=== PATIENT | male | born 1975 | race Caucasian/White ===

== ENCOUNTER 2017-03-31 13:34 | Inpatient (IN) | payer BC ==
[2017-03-31] MEDS ORDERED: Sodium Chloride 0.9% 1,000 ML IV ONE (13:39)
[2017-03-31] MEDS ORDERED: Aspirin 81 MG Tab.Chew PO ONE (13:39)
[2017-03-31] MEDS ORDERED: Nitroglycerin 0.4 MG Tab.SL SL PRN (13:40)
--- NOTE | 2017-03-31 13:41 | EDM.PDOC ---
ED HPI GENERAL MEDICAL PROBLEM - General Stated Complaint: ABDOMINAL PAIN,SOB Time Seen by Provider: 03/31/17 13:40 Source of Information: Reports: Patient - History of Present Illness INITIAL COMMENTS - FREE TEXT/NARRATIVE: HISTORY AND PHYSICAL: History of present illness: [Patient presents with abdominal pain 6 out of 10 left lower quadrant no fever nausea vomiting chills sweats Requiring multiple doses of narcotics for pain control No chest pain shortness breath headache dizziness palpitation no bowel or urine symptoms ] Review of systems: As per history of present illness and below otherwise all systems reviewed and negative. Past medical history: As per history of present illness and as reviewed below otherwise noncontributory. Surgical history: As per history of present illness and as reviewed below otherwise noncontributory. Social history: No reported history of drug or alcohol abuse. Family history: As per history of present illness and as reviewed below otherwise noncontributory. Physical exam: HEENT: Atraumatic, normocephalic, pupils reactive, negative for conjunctival pallor or scleral icterus, mucous membranes moist, throat clear, neck supple, nontender, trachea midline. Lungs: Clear to auscultation, breath sounds equal bilaterally, chest nontender. Heart: S1S2, regular, negative for clicks, rubs, or JVD. Abdomen: Soft, nondistended, nontender. Negative for masses or hepatosplenomegaly. Negative for costovertebral tenderness. Pelvis: Stable nontender. Genitourinary: Deferred. Rectal: Deferred. Extremities: Atraumatic, negative for cords or calf pain. Neurovascular unremarkable. Neuro: Awake, alert, oriented. Cranial nerves II through XII unremarkable. Cerebellum unremarkable. Motor and sensory unremarkable throughout. Exam nonfocal. Diagnostics: [CBC CMP UA cardiac enzymes Chest 1 view EKG ] Therapeutics: []1 L normal saline bolus Aspirin 324 mg chewable Nitroglycerin sublingual 3 when necessary--not provided Cipro 400 mg IV Flagyl 500 mg IV Morphine 4 mg IV followed by Dilaudid 1 mg IV Patient admitted to [facility] for medical management Impression: Abdominal pain Diverticulitis Definitive disposition and diagnosis as appropriate pending reevaluation and review of above. Abdominal Pain Score (Numeric/FACES): 10 Chest Pain Score (Numeric/FACES): 7 - Related Data Allergies Allergy/AdvReac Type Severity Reaction Status Date / Time No Known Allergies Allergy Verified 03/31/17 13:40 Home Meds: Home Meds . [No Known Home Meds] 03/07/16 [History] Past Medical History - Past Health History Medical/Surgical History: Denies Medical/Surgical History HEENT History: Reports: None, Impaired Vision, Other (See Below) Other HEENT History: wears glasses Cardiovascular History: Reports: None Other Cardiovascular History: History of chest pain-- all investigation came back normal Respiratory History: Reports: None Gastrointestinal History: Reports: Diverticulosis, GERD Other Gastrointestinal History: Diverticulitis Genitourinary History: Reports: None Musculoskeletal History: Reports: None Other Musculoskeletal History: Shoulder injury Neurological History: Reports: Concussion Psychiatric History: Reports: None Endocrine/Metabolic History: Reports: Obesity/BMI 30+ Hematologic History: Reports: None Immunologic History: Reports: None Oncologic (Cancer) History: Reports: None Dermatologic History: Reports: None - Infectious Disease History Infectious Disease History: Reports: Chicken Pox - Past Surgical History Head Surgeries/Procedures: Reports: None HEENT Surgical History: Reports: None Cardiovascular Surgical History: Reports: None Respiratory Surgical History: Reports: None GI Surgical History: Reports: None Male Surgical History: Reports: Vasectomy Endocrine Surgical History: Reports: None Neurological Surgical History: Reports: None Musculoskeletal Surgical History: Reports: None Oncologic Surgical History: Reports: None Dermatological Surgical History: Reports: None Social & Family History - Family History Family Medical History: Noncontributory HEENT: Reports: Glaucoma Cardiac: Reports: CAD, High Cholesterol, Hypertension Respiratory: Reports: None GI: Reports: Diverticulitis : Reports: None OBGYN: Reports: None Musculoskeletal: Reports: None Neurological: Reports: None Psychiatric: Reports: Anxiety, Depression Endocrine/Metabolic: Reports: Diabetes, type II Immunologic: Reports: None Dermatologic: Reports: None Oncologic: Reports: Other (See Below) Other Oncologic Family History: tongue - Tobacco Use Smoking Status *Q: Never Smoker Second Hand Smoke Exposure: No - Caffeine Use Caffeine Use: Reports: None - Alcohol Use Days Per Week of Alcohol Use: 1 Number of Drinks Per Day: 1 Total Drinks Per Week: 1 - Recreational Drug Use Recreational Drug Use: No Drug Use in Last 12 Months: No ED ROS GENERAL - Review of Systems Review Of Systems: ROS reveals no pertinent complaints other than HPI. ED EXAM, GENERAL - Physical Exam Exam: See Below Course - Vital Signs Last Recorded V/S: Last Vital Signs Temp 97.1 F 03/31/17 13:41 Pulse 94 03/31/17 14:52 Resp 14 03/31/17 14:52 BP 154/81 H 03/31/17 14:52 Pulse Ox 96 03/31/17 14:52 - Orders/Labs/Meds Orders: Active Orders 24 hr Category Date Time Status EKG Documentation Completion [RC] STAT Care 03/31/17 13:39 Active RT Aerosol Therapy [RC] ASDIRECTED Care 03/31/17 13:45 Active Ciprofloxacin in D5W [Cipro in D5W 400 MG/200 ML] 400 Med 03/31/17 16:00 Active mg Premix Bag 1 bag IV Q12H metroNIDAZOLE/Normal Saline [Flagyl 500 MG in NS 100 ML Med 03/31/17 15:51 Active ] 500 mg Premix Bag 1 bag IV ONETIME Medication Orders Ciprofloxacin/Dextrose 400 mg/ (Premix) 200 mls @ 200 mls/hr IV Q12H JASON Last Admin: 03/31/17 16:11 Dose: 200 mls/hr Metronidazole 500 mg/ Premix 100 mls @ 100 mls/hr IV ONETIME ONE Stop: 03/31/17 16:50 Last Admin: 03/31/17 16:15 Dose: 100 mls/hr Labs: Laboratory Tests 03/31/17 03/31/17 03/31/17 Range/Units 13:43 13:43 14:54 WBC 11.17 H (4.0-11.0) K/uL RBC 5.93 H (4.50-5.90) M/uL Hgb 17.7 H (13.0-17.0) g/dL Hct 49.7 (38.0-50.0) % MCV 83.8 (80.0-98.0) fL MCH 29.8 (27.0-32.0) pg MCHC 35.6 (31.0-37.0) g/dL RDW Std Deviation 36.6 (28.0-62.0) fl RDW Coeff of Randy 12 (11.0-15.0) % Plt Count 152 (150-400) K/uL MPV 11.00 (7.40-12.00) fL Neut % (Auto) 70.9 (48.0-80.0) % Lymph % (Auto) 22.6 (16.0-40.0) % [place] % (Auto) 4.2 (0.0-15.0) % Eos % (Auto) 2.1 (0.0-7.0) % Baso % (Auto) 0.2 (0.0-1.5) % Neut # (Auto) 7.9 H (1.4-5.7) K/uL Lymph # (Auto) 2.5 H (0.6-2.4) K/uL [place] # (Auto) 0.5 (0.0-0.8) K/uL Eos # (Auto) 0.2 (0.0-0.7) K/uL Baso # (Auto) 0.0 (0.0-0.1) K/uL Nucleated RBC % 0.0 /100WBC Nucleated RBCs # 0 K/uL Sodium 139 (136-146) mmol/L Potassium 3.6 (3.5-5.1) mmol/L Chloride 106 (98-110) mmol/L Carbon Dioxide 22 (21-31) mmol/L BUN 15 (6.0-23.0) mg/dL Creatinine 1.0 (0.6-1.5) mg/dL Est Cr Clr Drug Dosing 92.15 mL/min Estimated GFR (MDRD) > 60.0 ml/min Glucose 199 H (60-110) mg/dL Calcium 9.2 (8.8-10.8) mg/dL Total Bilirubin 0.8 (0.1-1.5) mg/dL AST 24 (5-40) IU/L ALT 52 (8-54) IU/L Alkaline Phosphatase 60 (40-150) Creatine Kinase 108 (9-236) IU/L CK-MB (CK-2) 1.1 (0-6.6) ng/ml Troponin I < 0.10 (0.0-0.29) NG/ML Total Protein 7.2 (6.0-8.0) g/dL Albumin 4.8 (3.5-5.0) g/dL Globulin 2.4 (2.0-3.5) g/dL Albumin/Globulin Ratio 2.0 (1.3-2.8) Amylase 59 (10-90) U/L Lipase 32 (7-80) U/L Urine Color YELLOW Urine Appearance CLEAR Urine pH 6.0 (5.0-8.0) Ur Specific [place] >= 1.030 (1.001-1.035) Urine Protein NEGATIVE (NEGATIVE) mg/dL Urine Glucose (UA) 250 H (NEGATIVE) mg/dL Urine Ketones NEGATIVE (NEGATIVE) mg/dL Urine Occult Blood NEGATIVE (NEGATIVE) Urine Nitrite NEGATIVE (NEGATIVE) Urine Bilirubin NEGATIVE (NEGATIVE) Urine Urobilinogen 0.2 (<2.0) EU/dL Ur Leukocyte Esterase NEGATIVE (NEGATIVE) Urine RBC 0-1 (0-2/HPF) Urine WBC 0-1 (0-5/HPF) Ur Epithelial Cells RARE (NONE-FEW) Urine Bacteria RARE (NEGATIVE) Meds: Medications Generic Name Dose Route Start Last Admin Trade Name Freq PRN Reason Stop Dose Admin Ciprofloxacin/Dextrose 400 mg/ 200 mls @ 200 mls/hr 03/31/17 16:00 03/31/17 16:11 Premix IV 200 mls/hr Q12H JASON Administration Metronidazole 500 mg/ Premix 100 mls @ 100 mls/hr 03/31/17 15:51 03/31/17 16: 15 IV 03/31/17 16:50 100 mls/hr ONETIME ONE Administration Discontinued Medications Generic Name Dose Route Start Last Admin Trade Name Freq PRN Reason Stop Dose Admin Albuterol/Ipratropium 3 ml 03/31/17 13:45 03/31/17 14:13 Duoneb 3.0-0.5 Mg/3 Ml NEB 03/31/17 13:46 3 ml ONETIME ONE Administration Aspirin 324 mg 03/31/17 13:39 03/31/17 13:57 Aspirin PO 03/31/17 13:40 324 mg ONETIME ONE Administration Hydromorphone HCl 1 mg 03/31/17 15:51 03/31/17 16:09 Dilaudid IVPUSH 03/31/17 15:52 1 mg ONETIME ONE Administration Sodium Chloride 1,000 mls @ 999 mls/hr 03/31/17 13:39 03/31/17 14:01 Normal Saline IV 03/31/17 14:39 999 mls/hr STAT ONE Administration Morphine Sulfate 4 mg 03/31/17 13:49 03/31/17 14:13 Morphine IVPUSH 03/31/17 13:50 4 mg ONETIME ONE Administration Nitroglycerin 0.4 mg 03/31/17 13:40 Nitrostat SL Q5M PRN Chest Pain Ondansetron HCl 8 mg 03/31/17 13:45 03/31/17 14:01 Zofran IVPUSH 03/31/17 13:46 8 mg ONETIME ONE Administration Pantoprazole Sodium 80 mg 03/31/17 13:44 03/31/17 14:04 Protonix Iv IVPUSH 03/31/17 13:45 80 mg .BOLUS ONE Administration Departure - Departure Time of Disposition: 16:21 Disposition: Admitted As Inpatient 64 Condition: Fair Clinical Impression: Diverticulitis - Discharge Information Referrals: Alejandro Shultz [Primary Care Provider] - - My Orders Last 24 Hours: My Active Orders 03/31/17 13:39 EKG Documentation Completion [RC] STAT 03/31/17 13:45 RT Aerosol Therapy [RC] ASDIRECTED 03/31/17 15:51 metroNIDAZOLE/Normal Saline [Flagyl 500 MG in NS 100 ML] 500 mg Premix Bag 1 bag IV ONETIME 03/31/17 16:00 Ciprofloxacin in D5W [Cipro in D5W 400 MG/200 ML] 400 mg Premix Bag 1 bag IV Q12H - Assessment/Plan Last 24 Hours: My Active Orders 03/31/17 13:39 EKG Documentation Completion [RC] STAT 03/31/17 13:45 RT Aerosol Therapy [RC] ASDIRECTED 03/31/17 15:51 metroNIDAZOLE/Normal Saline [Flagyl 500 MG in NS 100 ML] 500 mg Premix Bag 1 bag IV ONETIME 03/31/17 16:00 Ciprofloxacin in D5W [Cipro in D5W 400 MG/200 ML] 400 mg Premix Bag 1 bag IV Q12H
[2017-03-31] MEDS ORDERED: Pantoprazole 40 MG Vial IVPUSH ONE (13:44)
[2017-03-31] MEDS ORDERED: Albuterol/Ipratropium 3.0-0.5 MG/3 ML Neb Soln NEB ONE (13:45)
[2017-03-31] MEDS ORDERED: Ondansetron 4 MG/2 ML SDV IVPUSH ONE (13:45)
[2017-03-31] MEDS ORDERED: Morphine 4 MG/ML Syringe IVPUSH ONE (13:49)
[2017-03-31 14:17] LABS: CHLORIDE,CL 106 mmol/L (98-110); SODIUM,NA 139 mmol/L (136-146)
--- NOTE | 2017-03-31 14:17 | CR ---
EXAMINATION: Portable chest radiograph. HISTORY: Shortness of breath. FINDINGS: The trachea is midline. The cardiomediastinal silhouette is within normal limits. No pulmonary infilt rates, effusions or pneumothorax. Accessory azygous fissure. Osseous structures appear unremarkable. IMPRESSION: No acute cardiopulmonary process.
--- NOTE | 2017-03-31 15:35 | CT ---
CT of the abdomen and pelvis with contrast. HISTORY: Pain TECHNIQUE: Axial CT images were obtained of the abdomen and pelvis following administration of 100 mL of Isovue-370 in the left wrist without complication. Coronal and sagittal reconstructions obtained. FINDINGS: The lung bases are clear, no pleural effusion. Calcified granuloma within the left lower lobe with le ft calcified lymph nodes. Likely at least moderate fatty infiltration of the liver. Tiny cyst noted within the right hepatic lo be. Splenic granulomata are noted. Adrenal glands and pancreas appear normal. Cholelithiasis without pericholecystic stranding. No bulky retroperitoneal lymphadenopathy or abdominal ascites. The kidneys enhance and function symmetrically without evidence of obstructive uropathy. Renal cortic al cysts are noted. The large and small bowel are normal in caliber without evidence of obstruction. Mild focal stranding within the sigmoid region with adjacent diverticula. No free air free fluid. The appendix is normal. The urinary bladder is normal. The prostate is mildly prominent. No pelvic lymphadenopathy. Minimal fat-containing left inguinal hernia. No suspicious osseous abnormalities identified. IMPRESSION: 1. Sigmoid diverticulitis. 2. Fatty infiltration of the liver. 3. Cholelithiasis
[2017-03-31] MEDS ORDERED: metroNIDAZOLE/Normal Saline 500 MG in Premix Bag 1 BAG IV ONE (15:51)
[2017-03-31] MEDS ORDERED: HYDROmorphone 2 MG/ML Syringe IVPUSH ONE (15:51)
[2017-03-31] MEDS: Ciprofloxacin in D5W 400 MG in Premix Bag 1 BAG IV SCH ×2 (16:11)
[2017-03-31] MEDS ORDERED: Morphine 2 MG/ML Syringe IVPUSH PRN (17:25)
--- NOTE | 2017-03-31 17:45 | PCM.HP ---
H&P History of Present Illness - General Admit Problem/Dx: Admission Diagnosis/Problem Admission Diagnosis/Problem Diverticulitis - History of Present Illness Initial Comments - Free Text/Narative: 41 yo male who presented with one day history left lower quadrant pain. He denies any diarrhea, fevers, constipation, or blood in stool. He has a history of diverticulitis with last episode one year ago. CT scan of abdomen reported sigmoid diverticulitis. Abdominal Pain Score (Numeric/FACES): 10 Chest Pain Score (Numeric/FACES): 7 - Related Data Allergies/Adverse Reactions: Allergies Allergy/AdvReac Type Severity Reaction Status Date / Time No Known Allergies Allergy Verified 03/31/17 13:40 Home Medications: Home Meds . [No Known Home Meds] 03/07/16 [History] Past Medical History - Past Health History Medical/Surgical History: Denies Medical/Surgical History HEENT History: Reports: None, Impaired Vision, Other (See Below) Other HEENT History: wears glasses Cardiovascular History: Reports: None Other Cardiovascular History: History of chest pain-- all investigation came back normal Respiratory History: Reports: None Gastrointestinal History: Reports: Diverticulosis, GERD Other Gastrointestinal History: Diverticulitis Genitourinary History: Reports: None Musculoskeletal History: Reports: None Other Musculoskeletal History: Shoulder injury Neurological History: Reports: Concussion Psychiatric History: Reports: None Endocrine/Metabolic History: Reports: Obesity/BMI 30+ Hematologic History: Reports: None Immunologic History: Reports: None Oncologic (Cancer) History: Reports: None Dermatologic History: Reports: None - Infectious Disease History Infectious Disease History: Reports: Chicken Pox - Past Surgical History Head Surgeries/Procedures: Reports: None HEENT Surgical History: Reports: None Cardiovascular Surgical History: Reports: None Respiratory Surgical History: Reports: None GI Surgical History: Reports: None Male Surgical History: Reports: Vasectomy Endocrine Surgical History: Reports: None Neurological Surgical History: Reports: None Musculoskeletal Surgical History: Reports: None Oncologic Surgical History: Reports: None Dermatological Surgical History: Reports: None Social & Family History - Family History Family Medical History: Noncontributory HEENT: Reports: Glaucoma Cardiac: Reports: CAD, High Cholesterol, Hypertension Respiratory: Reports: None GI: Reports: Diverticulitis : Reports: None OBGYN: Reports: None Musculoskeletal: Reports: None Neurological: Reports: None Psychiatric: Reports: Anxiety, Depression Endocrine/Metabolic: Reports: Diabetes, type II Immunologic: Reports: None Dermatologic: Reports: None Oncologic: Reports: Other (See Below) Other Oncologic Family History: tongue - Tobacco Use Smoking Status *Q: Never Smoker Second Hand Smoke Exposure: No - Caffeine Use Caffeine Use: Reports: None - Alcohol Use Days Per Week of Alcohol Use: 1 Number of Drinks Per Day: 1 Total Drinks Per Week: 1 - Recreational Drug Use Recreational Drug Use: No Drug Use in Last 12 Months: No H&P Review of Systems - Review of Systems: Review Of Systems: ROS reveals no pertinent complaints other than HPI. Exam - Exam Exam: See Below - Vital Signs Vital Signs: Last Vital Signs Temp 36.2 C 03/31/17 13:41 Pulse 80 03/31/17 17:10 Resp 13 03/31/17 17:10 BP 122/69 03/31/17 17:10 Pulse Ox 97 03/31/17 17:10 Weight: 99.79 kg - Exam General: Alert, Oriented Lungs: Clear to Auscultation, Normal Respiratory Effort Cardiovascular: Regular Rate, Regular Rhythm GI/Abdominal Exam: Normal Bowel Sounds, Soft, No Distention, Tender (left lower quandrant) Extremities: Non-Tender, No Pedal Edema Skin: Warm, Dry, Intact - Patient Data Lab Results Last 24 hrs: Laboratory Results - last 24 hr 03/31/17 03/31/17 03/31/17 Range/Units 13:43 13:43 14:54 WBC 11.17 H (4.0-11.0) K/uL RBC 5.93 H (4.50-5.90) M/uL Hgb 17.7 H (13.0-17.0) g/dL Hct 49.7 (38.0-50.0) % MCV 83.8 (80.0-98.0) fL MCH 29.8 (27.0-32.0) pg MCHC 35.6 (31.0-37.0) g/dL RDW Std Deviation 36.6 (28.0-62.0) fl RDW Coeff of Randy 12 (11.0-15.0) % Plt Count 152 (150-400) K/uL MPV 11.00 (7.40-12.00) fL Neut % (Auto) 70.9 (48.0-80.0) % Lymph % (Auto) 22.6 (16.0-40.0) % [place] % (Auto) 4.2 (0.0-15.0) % Eos % (Auto) 2.1 (0.0-7.0) % Baso % (Auto) 0.2 (0.0-1.5) % Neut # (Auto) 7.9 H (1.4-5.7) K/uL Lymph # (Auto) 2.5 H (0.6-2.4) K/uL [place] # (Auto) 0.5 (0.0-0.8) K/uL Eos # (Auto) 0.2 (0.0-0.7) K/uL Baso # (Auto) 0.0 (0.0-0.1) K/uL Nucleated RBC % 0.0 /100WBC Nucleated RBCs # 0 K/uL Sodium 139 (136-146) mmol/L Potassium 3.6 (3.5-5.1) mmol/L Chloride 106 (98-110) mmol/L Carbon Dioxide 22 (21-31) mmol/L BUN 15 (6.0-23.0) mg/dL Creatinine 1.0 (0.6-1.5) mg/dL Est Cr Clr Drug Dosing 92.15 mL/min Estimated GFR (MDRD) > 60.0 ml/min Glucose 199 H (60-110) mg/dL Calcium 9.2 (8.8-10.8) mg/dL Total Bilirubin 0.8 (0.1-1.5) mg/dL AST 24 (5-40) IU/L ALT 52 (8-54) IU/L Alkaline Phosphatase 60 (40-150) Creatine Kinase 108 (9-236) IU/L CK-MB (CK-2) 1.1 (0-6.6) ng/ml Troponin I < 0.10 (0.0-0.29) NG/ML Total Protein 7.2 (6.0-8.0) g/dL Albumin 4.8 (3.5-5.0) g/dL Globulin 2.4 (2.0-3.5) g/dL Albumin/Globulin Ratio 2.0 (1.3-2.8) Amylase 59 (10-90) U/L Lipase 32 (7-80) U/L Urine Color YELLOW Urine Appearance CLEAR Urine pH 6.0 (5.0-8.0) Ur Specific [place] >= 1.030 (1.001-1.035) Urine Protein NEGATIVE (NEGATIVE) mg/dL Urine Glucose (UA) 250 H (NEGATIVE) mg/dL Urine Ketones NEGATIVE (NEGATIVE) mg/dL Urine Occult Blood NEGATIVE (NEGATIVE) Urine Nitrite NEGATIVE (NEGATIVE) Urine Bilirubin NEGATIVE (NEGATIVE) Urine Urobilinogen 0.2 (<2.0) EU/dL Ur Leukocyte Esterase NEGATIVE (NEGATIVE) Urine RBC 0-1 (0-2/HPF) Urine WBC 0-1 (0-5/HPF) Ur Epithelial Cells RARE (NONE-FEW) Urine Bacteria RARE (NEGATIVE) Result Diagrams: 03/31/17 13:43 03/31/17 13:43 [place] Results Last 24 hrs: Microbiology 03/31/17 13:56 Influenza Type A Antigen Screen - Final Nasopharyngeal Swab NEGATIVE INFLUENZA A VIRUS AG Influenza Type B Antigen Screen - Final NEGATIVE INFLUENZA B VIRUS AG *Q Meaningful Use (ADM) - VTE *Q VTE Criteria *Q: - Stroke *Q Stroke Criteria *Q: - AMI *Q AMI Criteria *Q: Problem List Initiated/Reviewed/Updated: Yes Orders Last 24hrs: Active Orders 24 hr Category Date Time Status Admission Status [Patient Status] [ADT] Stat ADT 03/31/17 16:22 Active Blood Glucose Check, Bedside [RC] Q6HR Care 03/31/17 17:33 Ordered EKG Documentation Completion [RC] STAT Care 03/31/17 13:39 Active RT Aerosol Therapy [RC] ASDIRECTED Care 03/31/17 13:45 Active CULTURE STOOL + CAMPY+SHIGATOX [RM] Stat Lab 03/31/17 17:25 Uncollected Clostridium Difficile [CDIFF TOX A+B] [OP] Stat Lab 03/31/17 17:25 Uncollected WBC, STOOL [OP] Stat Lab 03/31/17 17:25 Uncollected Ciprofloxacin in D5W [Cipro in D5W 400 MG/200 ML] 400 Med 03/31/17 16:00 Active mg Premix Bag 1 bag IV Q12H Insulin Aspart [NovoLOG] Med 03/31/17 17:45 Ordered See Protocol SUBCUT Q6H Morphine Med 03/31/17 17:25 Ordered 2 mg IVPUSH Q3H PRN Sodium Chloride 0.9% @ 125 MLS/HR (1,000ml) Med 03/31/17 17:30 Ordered Sodium Chloride 0.9% [Normal Saline] 1,000 ml IV ASDIRECTED metroNIDAZOLE/Normal Saline [Flagyl 500 MG in NS 100 ML Med 04/01/17 00:00 Ordered ] 500 mg Premix Bag 1 bag IV Q8H Medication Orders Ciprofloxacin/Dextrose 400 mg/ (Premix) 200 mls @ 200 mls/hr IV Q12H JASON Last Admin: 03/31/17 16:11 Dose: 200 mls/hr Metronidazole 500 mg/ Premix 100 mls @ 100 mls/hr IV Q8H JASON Sodium Chloride (Normal Saline) 1,000 mls @ 125 mls/hr IV ASDIRECTED JASON Insulin Aspart (Novolog) 0 unit SUBCUT Q6H JASON PRN Reason: Protocol Morphine Sulfate (Morphine) 2 mg IVPUSH Q3H PRN PRN Reason: Pain Assessment/Plan Comment:: 41 yo male admitted with aucte diverticulitis. We will treat with IV fluids, Ciprofloxacin, and Flagyl. We will keep NPO until abdominal pain improves.
[2017-03-31] MEDS ORDERED: Iopamidol 755 MG/ML 500 ML Multipack Bottle IVPUSH STA (17:57)
[2017-03-31] MEDS: Sodium Chloride 0.9% 1,000 ML IV SCH (18:08)
[2017-03-31] MEDS: Insulin Aspart 100 Units/ML 3 ML Pen SUBCUT SCH (18:20)
[2017-03-31] MEDS: HYDROmorphone 1 MG/ML Syringe IVPUSH PRN ×2 (18:59→22:23)
[2017-03-31] MEDS: metroNIDAZOLE/Normal Saline 500 MG in Premix Bag 1 BAG IV SCH (23:53)
[2017-04-01] MEDS: Insulin Aspart 100 Units/ML 3 ML Pen SUBCUT SCH ×4 (01:04→19:38)
[2017-04-01] MEDS: HYDROmorphone 1 MG/ML Syringe IVPUSH PRN ×5 (01:28→15:54)
[2017-04-01 06:26] LABS: CHLORIDE,CL 107 mmol/L (98-110); SODIUM,NA 141 mmol/L (136-146)
[2017-04-01] MEDS: Ciprofloxacin in D5W 400 MG in Premix Bag 1 BAG IV SCH ×4 (06:31→16:55)
--- NOTE | 2017-04-01 07:42 | PCM.PN ---
- General Info Date of Service: 04/01/17 Admission Dx/Problem (Free Text): Admission Diagnosis/Problem Admission Diagnosis/Problem Diverticulitis Subjective Update: Doing fair this morning, having pain to LLQ still, no real change. No chest pain or SOB. Having the start of a headache this morning, reports he gets these with narcotics. Some nausea, he is passing flatus no BM since admission. Functional Status: Reports: Ambulating, Urinating. Denies: Pain Controlled, Tolerating Diet - Review of Systems General: Reports: No Symptoms. Denies: Fever, Weakness, Fatigue HEENT: Reports: Headaches Pulmonary: Reports: No Symptoms. Denies: Shortness of Breath Cardiovascular: Reports: No Symptoms. Denies: Chest Pain Gastrointestinal: Reports: Abdominal Pain (LLQ), Decreased Appetite, Flatus, Nausea. Denies: Vomiting Genitourinary: Reports: No Symptoms. Denies: Dysuria, Frequency, Burning Musculoskeletal: Reports: No Symptoms Neurological: Reports: No Symptoms. Denies: Confusion Psychiatric: Reports: No Symptoms. Denies: Confusion - Patient Data Vitals - Most Recent: Last Vital Signs Temp 98.2 F 04/01/17 04:00 Pulse 96 04/01/17 04:00 Resp 18 04/01/17 04:00 BP 101/62 04/01/17 04:00 Pulse Ox 95 04/01/17 04:00 Weight - Most Recent: 106 kg I&O - Last 24 Hours: Intake & Output 03/31/17 04/01/17 04/01/17 22:59 06:59 14:59 Intake Total 100 Output Total 400 Balance -300 Lab Results Last 24 Hours: Laboratory Results - last 24 hr 03/31/17 03/31/17 04/01/17 Range/Units 18:11 23:55 04:12 WBC 8.62 (4.0-11.0) K/uL RBC 5.07 (4.50-5.90) M/uL Hgb 15.0 (13.0-17.0) g/dL Hct 43.5 (38.0-50.0) % MCV 85.8 (80.0-98.0) fL MCH 29.6 (27.0-32.0) pg MCHC 34.5 (31.0-37.0) g/dL RDW Std Deviation 38.4 (28.0-62.0) fl RDW Coeff of Randy 12 (11.0-15.0) % Plt Count 128 L (150-400) K/uL MPV 11.00 (7.40-12.00) fL Neut % (Auto) 69.1 (48.0-80.0) % Lymph % (Auto) 18.9 (16.0-40.0) % [place] % (Auto) 8.9 (0.0-15.0) % Eos % (Auto) 2.8 (0.0-7.0) % Baso % (Auto) 0.3 (0.0-1.5) % Neut # (Auto) 6.0 H (1.4-5.7) K/uL Lymph # (Auto) 1.6 (0.6-2.4) K/uL [place] # (Auto) 0.8 (0.0-0.8) K/uL Eos # (Auto) 0.2 (0.0-0.7) K/uL Baso # (Auto) 0.0 (0.0-0.1) K/uL Nucleated RBC % 0.0 /100WBC Nucleated RBCs # 0 K/uL Sodium (136-146) mmol/L Potassium (3.5-5.1) mmol/L Chloride (98-110) mmol/L Carbon Dioxide (21-31) mmol/L BUN (6.0-23.0) mg/dL Creatinine (0.6-1.5) mg/dL Est Cr Clr Drug Dosing mL/min Estimated GFR (MDRD) ml/min Glucose (60-110) mg/dL POC Glucose 123 H 143 H (60-110) mg/dL Calcium (8.8-10.8) mg/dL Total Bilirubin (0.1-1.5) mg/dL AST (5-40) IU/L ALT (8-54) IU/L Alkaline Phosphatase (40-150) Total Protein (6.0-8.0) g/dL Albumin (3.5-5.0) g/dL Globulin (2.0-3.5) g/dL Albumin/Globulin Ratio (1.3-2.8) 04/01/17 04/01/17 Range/Units 05:11 06:19 WBC (4.0-11.0) K/uL RBC (4.50-5.90) M/uL Hgb (13.0-17.0) g/dL Hct (38.0-50.0) % MCV (80.0-98.0) fL MCH (27.0-32.0) pg MCHC (31.0-37.0) g/dL RDW Std Deviation (28.0-62.0) fl RDW Coeff of Randy (11.0-15.0) % Plt Count (150-400) K/uL MPV (7.40-12.00) fL Neut % (Auto) (48.0-80.0) % Lymph % (Auto) (16.0-40.0) % [place] % (Auto) (0.0-15.0) % Eos % (Auto) (0.0-7.0) % Baso % (Auto) (0.0-1.5) % Neut # (Auto) (1.4-5.7) K/uL Lymph # (Auto) (0.6-2.4) K/uL [place] # (Auto) (0.0-0.8) K/uL Eos # (Auto) (0.0-0.7) K/uL Baso # (Auto) (0.0-0.1) K/uL Nucleated RBC % /100WBC Nucleated RBCs # K/uL Sodium 141 (136-146) mmol/L Potassium 4.1 (3.5-5.1) mmol/L Chloride 107 (98-110) mmol/L Carbon Dioxide 27 (21-31) mmol/L BUN 15 (6.0-23.0) mg/dL Creatinine 1.0 (0.6-1.5) mg/dL Est Cr Clr Drug Dosing 92.15 mL/min Estimated GFR (MDRD) > 60.0 ml/min Glucose 122 H (60-110) mg/dL POC Glucose 134 H (60-110) mg/dL Calcium 8.4 L (8.8-10.8) mg/dL Total Bilirubin 1.3 (0.1-1.5) mg/dL AST 18 (5-40) IU/L ALT 37 (8-54) IU/L Alkaline Phosphatase 47 (40-150) Total Protein 5.5 L (6.0-8.0) g/dL Albumin 4.0 (3.5-5.0) g/dL Globulin 1.5 L (2.0-3.5) g/dL Albumin/Globulin Ratio 2.7 (1.3-2.8) Med Orders - Current: Current Medications Hydromorphone HCl (Dilaudid) 1 mg IVPUSH Q3H PRN PRN Reason: Pain Last Admin: 04/01/17 06:59 Dose: 1 mg Ciprofloxacin/Dextrose 400 mg/ (Premix) 200 mls @ 200 mls/hr IV Q12H [facility] Last Admin: 04/01/17 06:31 Dose: Not Given Metronidazole 500 mg/ Premix 100 mls @ 100 mls/hr IV Q8H [facility] Last Admin: 03/31/17 23:53 Dose: 100 mls/hr Sodium Chloride (Normal Saline) 1,000 mls @ 125 mls/hr IV ASDIRECTED [facility] Last Admin: 03/31/17 18:08 Dose: 125 mls/hr Insulin Aspart (Novolog) 0 unit SUBCUT Q6H [facility] PRN Reason: Protocol Last Admin: 04/01/17 06:31 Dose: Not Given Discontinued Medications Albuterol/Ipratropium (Duoneb 3.0-0.5 Mg/3 Ml) 3 ml NEB ONETIME ONE Stop: 03/31/17 13:46 Last Admin: 03/31/17 14:13 Dose: 3 ml Aspirin (Aspirin) 324 mg PO ONETIME ONE Stop: 03/31/17 13:40 Last Admin: 03/31/17 13:57 Dose: 324 mg Hydromorphone HCl (Dilaudid) 1 mg IVPUSH ONETIME ONE Stop: 03/31/17 15:52 Last Admin: 03/31/17 16:09 Dose: 1 mg Sodium Chloride (Normal Saline) 1,000 mls @ 999 mls/hr IV STAT ONE Stop: 03/31/17 14:39 Last Admin: 03/31/17 14:01 Dose: 999 mls/hr Metronidazole 500 mg/ Premix 100 mls @ 100 mls/hr IV ONETIME ONE Stop: 03/31/17 16:50 Last Admin: 03/31/17 16:15 Dose: 100 mls/hr Iopamidol (Isovue Multipack-370 (76%)) 100 ml IVPUSH ONETIME STA Stop: 03/31/17 17:58 Last Admin: 03/31/17 17:58 Dose: 100 ml Morphine Sulfate (Morphine) 4 mg IVPUSH ONETIME ONE Stop: 03/31/17 13:50 Last Admin: 03/31/17 14:13 Dose: 4 mg Morphine Sulfate (Morphine) 2 mg IVPUSH Q3H PRN PRN Reason: Pain Nitroglycerin (Nitrostat) 0.4 mg SL Q5M PRN PRN Reason: Chest Pain Ondansetron HCl (Zofran) 8 mg IVPUSH ONETIME ONE Stop: 03/31/17 13:46 Last Admin: 03/31/17 14:01 Dose: 8 mg Pantoprazole Sodium (Protonix Iv) 80 mg IVPUSH .BOLUS ONE Stop: 03/31/17 13:45 Last Admin: 03/31/17 14:04 Dose: 80 mg - Exam General: Alert, Oriented, Cooperative, No Acute Distress Neck: Supple Lungs: Clear to Auscultation, Normal Respiratory Effort Cardiovascular: Regular Rate, Regular Rhythm GI/Abdominal Exam: Normal Bowel Sounds, Soft, No Mass, Distended, Tender (LLQ). No: Guarding, Rigid (Male) Exam: No Hernia, Normal Inspection, Normal Prostate, Circumcised Extremities: Normal Inspection, Normal Range of Motion, Non-Tender, No Pedal Edema, Normal Capillary Refill Neurological: No New Focal Deficit Psy/Mental Status: Alert, Normal Affect, Normal Mood - Problem List & Annotations (1) Diverticulosis large intestine w/o perforation or abscess w/o bleeding SNOMED Code(s): 5469152 Code(s): K57.30 - DVRTCLOS OF LG INT W/O PERFORATION OR ABSCESS W/O BLEEDING Status: Acute Current Visit: No (2) Abdominal pain SNOMED Code(s): 35687579 Code(s): R10.9 - UNSPECIFIED ABDOMINAL PAIN Status: Acute Current Visit: No Qualifiers: Abdominal location: left lower quadrant Qualified Code(s): R10.32 - Left lower quadrant pain (3) Diverticular disease SNOMED Code(s): 25345158 Code(s): K57.90 - DVRTCLOS OF INTEST, PART UNSP, W/O PERF OR ABSCESS W/O BLEED Status: Chronic Current Visit: No Qualifiers: Diverticulosis site: diverticulosis of large intestine Diverticulosis bleeding: diverticulosis without bleeding Qualified Code(s): K57.30 - Diverticulosis of large intestine without perforation or abscess without bleeding - Problem List Review Problem List Initiated/Reviewed/Updated: Yes - Plan Plan:: 41 yo male admitted with aucte diverticulitis. 1. Sigmoid diverticulitis: Slight improvement with pain. Leukocytosis improved. Continue IV fluids, Ciprofloxacin, and Flagyl. Keep NPO until pain resolves. Toradol today for headache. Increase Dilaudid frequency to every 2 hours, appears very comfortable in bed looking at phone. Spoke with Dr. Martinez, who performed colonscopy beginning of this month, she offered him colectomy to remove concerning region of colon, but patient at that time declined. He is still considering surgery. VTE prophylaxis: SCDs Dispo: 2-3 days pending improvement
[2017-04-01] MEDS: metroNIDAZOLE/Normal Saline 500 MG in Premix Bag 1 BAG IV SCH ×3 (07:53→23:02)
[2017-04-01] MEDS ORDERED: Ketorolac 30 MG/ML SDV IVPUSH ONE ×2 (08:52→17:40)
[2017-04-01] MEDS: Ondansetron 4 MG/2 ML SDV IVPUSH PRN (09:13)
[2017-04-01] MEDS: Sodium Chloride 0.9% 1,000 ML IV SCH ×2 (13:21→22:55)
[2017-04-02] MEDS: Insulin Aspart 100 Units/ML 3 ML Pen SUBCUT SCH ×3 (00:07→13:48)
[2017-04-02] MEDS ORDERED: Ketorolac 30 MG/ML SDV IVPUSH STA (01:58)
[2017-04-02] MEDS: Ondansetron 4 MG/2 ML SDV IVPUSH PRN (02:31)
[2017-04-02] MEDS: Ciprofloxacin in D5W 400 MG in Premix Bag 1 BAG IV SCH ×2 (03:46)
[2017-04-02 05:49] LABS: CHLORIDE,CL 106 mmol/L (98-110); SODIUM,NA 137 mmol/L (136-146)
[2017-04-02] MEDS: metroNIDAZOLE/Normal Saline 500 MG in Premix Bag 1 BAG IV SCH (07:44)
[2017-04-02] MEDS: Acetaminophen 325 MG Tab PO PRN ×2 (07:56→12:25)
--- NOTE | 2017-04-02 07:56 | PCM.PN ---
- General Info Date of Service: 04/02/17 Admission Dx/Problem (Free Text): Admission Diagnosis/Problem Admission Diagnosis/Problem Diverticulitis - Patient Data Vitals - Most Recent: Last Vital Signs Temp 98.2 F 04/02/17 04:00 Pulse 68 04/02/17 04:00 Resp 19 04/02/17 04:00 BP 118/60 04/02/17 04:00 Pulse Ox 97 04/02/17 04:00 Weight - Most Recent: 106 kg I&O - Last 24 Hours: Intake & Output 04/01/17 04/02/17 04/02/17 22:59 06:59 14:59 Intake Total 800 100 Balance 800 100 Lab Results Last 24 Hours: Laboratory Results - last 24 hr 04/01/17 04/01/17 04/01/17 Range/Units 12:31 19:27 23:42 WBC (4.0-11.0) K/uL RBC (4.50-5.90) M/uL Hgb (13.0-17.0) g/dL Hct (38.0-50.0) % MCV (80.0-98.0) fL MCH (27.0-32.0) pg MCHC (31.0-37.0) g/dL RDW Std Deviation (28.0-62.0) fl RDW Coeff of Randy (11.0-15.0) % Plt Count (150-400) K/uL MPV (7.40-12.00) fL Neut % (Auto) (48.0-80.0) % Lymph % (Auto) (16.0-40.0) % [place] % (Auto) (0.0-15.0) % Eos % (Auto) (0.0-7.0) % Baso % (Auto) (0.0-1.5) % Neut # (Auto) (1.4-5.7) K/uL Lymph # (Auto) (0.6-2.4) K/uL [place] # (Auto) (0.0-0.8) K/uL Eos # (Auto) (0.0-0.7) K/uL Baso # (Auto) (0.0-0.1) K/uL Nucleated RBC % /100WBC Nucleated RBCs # K/uL Sodium (136-146) mmol/L Potassium (3.5-5.1) mmol/L Chloride (98-110) mmol/L Carbon Dioxide (21-31) mmol/L BUN (6.0-23.0) mg/dL Creatinine (0.6-1.5) mg/dL Est Cr Clr Drug Dosing mL/min Estimated GFR (MDRD) ml/min Glucose (60-110) mg/dL POC Glucose 115 H 96 113 H (60-110) mg/dL Calcium (8.8-10.8) mg/dL 04/02/17 04/02/17 04/02/17 Range/Units 04:54 04:54 05:58 WBC 7.59 (4.0-11.0) K/uL RBC 4.88 (4.50-5.90) M/uL Hgb 14.4 (13.0-17.0) g/dL Hct 41.3 (38.0-50.0) % MCV 84.6 (80.0-98.0) fL MCH 29.5 (27.0-32.0) pg MCHC 34.9 (31.0-37.0) g/dL RDW Std Deviation 36.5 (28.0-62.0) fl RDW Coeff of Randy 12 (11.0-15.0) % Plt Count 118 L (150-400) K/uL MPV 10.80 (7.40-12.00) fL Neut % (Auto) 69.3 (48.0-80.0) % Lymph % (Auto) 17.4 (16.0-40.0) % [place] % (Auto) 10.0 (0.0-15.0) % Eos % (Auto) 3.0 (0.0-7.0) % Baso % (Auto) 0.3 (0.0-1.5) % Neut # (Auto) 5.3 (1.4-5.7) K/uL Lymph # (Auto) 1.3 (0.6-2.4) K/uL [place] # (Auto) 0.8 (0.0-0.8) K/uL Eos # (Auto) 0.2 (0.0-0.7) K/uL Baso # (Auto) 0.0 (0.0-0.1) K/uL Nucleated RBC % 0.0 /100WBC Nucleated RBCs # 0 K/uL Sodium 137 (136-146) mmol/L Potassium 3.7 (3.5-5.1) mmol/L Chloride 106 (98-110) mmol/L Carbon Dioxide 24 (21-31) mmol/L BUN 11 (6.0-23.0) mg/dL Creatinine 0.9 (0.6-1.5) mg/dL Est Cr Clr Drug Dosing 102.39 mL/min Estimated GFR (MDRD) > 60.0 ml/min Glucose 159 H (60-110) mg/dL POC Glucose 133 H (60-110) mg/dL Calcium 8.2 L (8.8-10.8) mg/dL Med Orders - Current: Current Medications Acetaminophen (Tylenol) 650 mg PO Q4H PRN PRN Reason: Headache/Pain Hydromorphone HCl (Dilaudid) 1 mg IVPUSH Q2H PRN PRN Reason: Pain Last Admin: 04/01/17 15:54 Dose: 1 mg Ciprofloxacin/Dextrose 400 mg/ (Premix) 200 mls @ 200 mls/hr IV Q12H [facility] Last Admin: 04/02/17 03:46 Dose: 200 mls/hr Metronidazole 500 mg/ Premix 100 mls @ 100 mls/hr IV Q8H [facility] Last Admin: 04/02/17 07:44 Dose: 100 mls/hr Sodium Chloride (Normal Saline) 1,000 mls @ 125 mls/hr IV ASDIRECTED [facility] Last Admin: 04/01/17 22:55 Dose: 125 mls/hr Insulin Aspart (Novolog) 0 unit SUBCUT Q6H [facility] PRN Reason: Protocol Last Admin: 04/02/17 06:45 Dose: Not Given Ondansetron HCl (Zofran) 4 mg IVPUSH Q4H PRN PRN Reason: Nausea Last Admin: 04/02/17 02:31 Dose: 4 mg Discontinued Medications Albuterol/Ipratropium (Duoneb 3.0-0.5 Mg/3 Ml) 3 ml NEB ONETIME ONE Stop: 03/31/17 13:46 Last Admin: 03/31/17 14:13 Dose: 3 ml Aspirin (Aspirin) 324 mg PO ONETIME ONE Stop: 03/31/17 13:40 Last Admin: 03/31/17 13:57 Dose: 324 mg Hydromorphone HCl (Dilaudid) 1 mg IVPUSH ONETIME ONE Stop: 03/31/17 15:52 Last Admin: 03/31/17 16:09 Dose: 1 mg Hydromorphone HCl (Dilaudid) 1 mg IVPUSH Q3H PRN PRN Reason: Pain Last Admin: 04/01/17 06:59 Dose: 1 mg Sodium Chloride (Normal Saline) 1,000 mls @ 999 mls/hr IV STAT ONE Stop: 03/31/17 14:39 Last Admin: 03/31/17 14:01 Dose: 999 mls/hr Metronidazole 500 mg/ Premix 100 mls @ 100 mls/hr IV ONETIME ONE Stop: 03/31/17 16:50 Last Admin: 03/31/17 16:15 Dose: 100 mls/hr Iopamidol (Isovue Multipack-370 (76%)) 100 ml IVPUSH ONETIME STA Stop: 03/31/17 17:58 Last Admin: 03/31/17 17:58 Dose: 100 ml Ketorolac Tromethamine (Toradol) 30 mg IVPUSH ONETIME ONE Stop: 04/01/17 08:53 Last Admin: 04/01/17 09:13 Dose: 30 mg Ketorolac Tromethamine (Toradol) 30 mg IVPUSH ONETIME ONE Stop: 04/01/17 17:41 Last Admin: 04/01/17 18:01 Dose: 30 mg Ketorolac Tromethamine (Toradol) 30 mg IVPUSH ONETIME STA Stop: 04/02/17 01:59 Last Admin: 04/02/17 02:27 Dose: 30 mg Morphine Sulfate (Morphine) 4 mg IVPUSH ONETIME ONE Stop: 03/31/17 13:50 Last Admin: 03/31/17 14:13 Dose: 4 mg Morphine Sulfate (Morphine) 2 mg IVPUSH Q3H PRN PRN Reason: Pain Nitroglycerin (Nitrostat) 0.4 mg SL Q5M PRN PRN Reason: Chest Pain Ondansetron HCl (Zofran) 8 mg IVPUSH ONETIME ONE Stop: 03/31/17 13:46 Last Admin: 03/31/17 14:01 Dose: 8 mg Pantoprazole Sodium (Protonix Iv) 80 mg IVPUSH .BOLUS ONE Stop: 03/31/17 13:45 Last Admin: 03/31/17 14:04 Dose: 80 mg - Problem List & Annotations (1) Diverticulosis large intestine w/o perforation or abscess w/o bleeding SNOMED Code(s): 8655814 Code(s): K57.30 - DVRTCLOS OF LG INT W/O PERFORATION OR ABSCESS W/O BLEEDING Status: Acute Current Visit: No (2) Abdominal pain SNOMED Code(s): 92394595 Code(s): R10.9 - UNSPECIFIED ABDOMINAL PAIN Status: Acute Current Visit: No Qualifiers: Abdominal location: left lower quadrant Qualified Code(s): R10.32 - Left lower quadrant pain (3) Diverticular disease SNOMED Code(s): 15813267 Code(s): K57.90 - DVRTCLOS OF INTEST, PART UNSP, W/O PERF OR ABSCESS W/O BLEED Status: Chronic Current Visit: No Qualifiers: Diverticulosis site: diverticulosis of large intestine Diverticulosis bleeding: diverticulosis without bleeding Qualified Code(s): K57.30 - Diverticulosis of large intestine without perforation or abscess without bleeding - My Orders Last 24 Hours: My Active Orders 04/01/17 09:03 Ondansetron [Zofran] 4 mg IVPUSH Q4H PRN 04/01/17 09:05 HYDROmorphone [Dilaudid] 1 mg IVPUSH Q2H PRN 04/03/17 05:11 BMP [BASIC METABOLIC PANEL,BMP] [CHEM] AM CBC WITH AUTO DIFF [HEME] AM 04/04/17 05:11 BMP [BASIC METABOLIC PANEL,BMP] [CHEM] AM CBC WITH AUTO DIFF [HEME] AM - Plan Plan:: 41 yo male admitted with aucte diverticulitis. 1. Sigmoid diverticulitis: Slight improvement with pain. Leukocytosis improved. Continue IV fluids, Ciprofloxacin, and Flagyl. Keep NPO until pain resolves. Toradol today for headache. Increase Dilaudid frequency to every 2 hours, appears very comfortable in bed looking at phone. Spoke with Dr. Martinez, who performed colonscopy beginning of this month, she offered him colectomy to remove concerning region of colon, but patient at that time declined. He is still considering surgery. VTE prophylaxis: SCDs Dispo: 2-3 days pending improvement
[2017-04-02] MEDS ORDERED: Benzonatate 100 MG Cap PO PRN (09:03)
--- NOTE | 2017-04-02 13:02 | PCM.DCSUM1 ---
Discharge Summary - Hospital Course Brief History: 41 yo male who presented with one day history left lower quadrant pain. He denies any diarrhea, fevers, constipation, or blood in stool. He has a history of diverticulitis with last episode one year ago. CT scan of abdomen reported sigmoid diverticulitis. - Discharge Data Discharge Date: 04/02/17 Discharge Disposition: Home, Self-Care 01 Condition: Good - Discharge Diagnosis/Problem(s) (1) Diverticulosis large intestine w/o perforation or abscess w/o bleeding SNOMED Code(s): 8704177 ICD Code: K57.30 - DVRTCLOS OF LG INT W/O PERFORATION OR ABSCESS W/O BLEEDING Status: Acute Current Visit: No (2) Abdominal pain SNOMED Code(s): 28645728 ICD Code: R10.9 - UNSPECIFIED ABDOMINAL PAIN Status: Acute Current Visit : No Qualifiers: Abdominal location: left lower quadrant Qualified Code(s): R10.32 - Left lower quadrant pain (3) Diverticular disease SNOMED Code(s): 91711100 ICD Code: K57.90 - DVRTCLOS OF INTEST, PART UNSP, W/O PERF OR ABSCESS W/O BLEED Status: Chronic Current Visit: No Qualifiers: Diverticulosis site: diverticulosis of large intestine Diverticulosis bleeding: diverticulosis without bleeding Qualified Code(s): K57.30 - Diverticulosis of large intestine without perforation or abscess without bleeding - Patient Instructions Diet: Full Liquid Diet (Stay on full liquid for 3-4 more days, then slowly advance to soft low fiber low residue then to regular high fiber after 2 weeks) Activity: As Tolerated, Rest and Relax Today Showering/Bathing: May Shower Notify Provider of: Fever, Increased Pain, Swelling and Redness, Drainage, Nausea and/or Vomiting - Discharge Plan Prescriptions/Med Rec: Ciprofloxacin [IJD: Ciprofloxacin HCl] 500 mg PO BID #24 tab metroNIDAZOLE [Flagyl] 500 mg PO Q8H #36 tab Home Medications: Home Meds Ciprofloxacin [IJD: Ciprofloxacin HCl] 500 mg PO BID #24 tab 04/02/17 [Rx] metroNIDAZOLE [Flagyl] 500 mg PO Q8H #36 tab 04/02/17 [Rx] Patient Handouts: Diverticulitis, [id number] Referrals: Alejandro Shultz [Primary Care Provider] - 04/15/17 9:30 am - Discharge Summary/Plan Comment DC Time >30 min.: No Discharge Summary/Plan Comment: Discharge Diagnoses: Sigmoid diverticulitis George was admitted and treated for Ciprofloxacin and Flagyl for sigmoid diverticulitis. He was placed on bowel rest and given IV pain medications. His last dose of Dilaudid was 04/01 at 1500. He did well overnight and was ready to try CL this morning. He is very eager to be discharged home. He had scant tenderness to LLQ today and has required no pain medications. He is passing gas and had BM. He tolerated FL diet this afternoon. He is requesting discharge home. He has no leukocytosis and is afebrile. He was encouraged to remain on FL diet for 3-4 days then advance to soft low fibe low residue then to regular over the next 1-2 weeks. He is to follow up with PCP 1 week. he did recently have a colonoscopy 03/12/2017, Dr Martinez offered surgical options, but patient had declined at that time and still is undecided on if he wants surgery to remove section of colon. he is to return to clinic or ED if concerns should arise. - General Info Date of Service: 04/02/17 Admission Dx/Problem (Free Text: Sigmoid diverticulitis Subjective Update: Doing well, tolerating liquids and eager to be discharged home. No chest pain, SOB or abdominal pain. he is passing flatus. Functional Status: Reports: Pain Controlled, Tolerating Diet, Ambulating, Urinating - Review of Systems HEENT: Reports: No Symptoms. Denies: Headaches, Sore Throat Pulmonary: Reports: No Symptoms. Denies: Shortness of Breath Cardiovascular: Reports: No Symptoms. Denies: Chest Pain Gastrointestinal: Reports: No Symptoms. Denies: Abdominal Pain, Nausea, Vomiting Genitourinary: Reports: No Symptoms. Denies: Dysuria, Frequency, Burning Skin: Reports: No Symptoms Neurological: Reports: No Symptoms. Denies: Confusion Psychiatric: Reports: No Symptoms. Denies: Confusion - Patient Data Vitals - Most Recent: Last Vital Signs Temp 98.2 F 04/02/17 08:00 Pulse 86 04/02/17 08:00 Resp 20 04/02/17 08:00 BP 124/71 04/02/17 08:00 Pulse Ox 91 L 04/02/17 08:00 Weight - Most Recent: 106 kg I&O - Last 24 hours: Intake & Output 04/01/17 04/02/17 04/02/17 22:59 06:59 14:59 Intake Total 800 300 Output Total 1250 Balance 800 -950 Lab Results - Last 24 hrs: Laboratory Results - last 24 hr 04/01/17 04/01/17 04/01/17 Range/Units 12:31 19:27 23:42 WBC (4.0-11.0) K/uL RBC (4.50-5.90) M/uL Hgb (13.0-17.0) g/dL Hct (38.0-50.0) % MCV (80.0-98.0) fL MCH (27.0-32.0) pg MCHC (31.0-37.0) g/dL RDW Std Deviation (28.0-62.0) fl RDW Coeff of Randy (11.0-15.0) % Plt Count (150-400) K/uL MPV (7.40-12.00) fL Neut % (Auto) (48.0-80.0) % Lymph % (Auto) (16.0-40.0) % [place] % (Auto) (0.0-15.0) % Eos % (Auto) (0.0-7.0) % Baso % (Auto) (0.0-1.5) % Neut # (Auto) (1.4-5.7) K/uL Lymph # (Auto) (0.6-2.4) K/uL [place] # (Auto) (0.0-0.8) K/uL Eos # (Auto) (0.0-0.7) K/uL Baso # (Auto) (0.0-0.1) K/uL Nucleated RBC % /100WBC Nucleated RBCs # K/uL Sodium (136-146) mmol/L Potassium (3.5-5.1) mmol/L Chloride (98-110) mmol/L Carbon Dioxide (21-31) mmol/L BUN (6.0-23.0) mg/dL Creatinine (0.6-1.5) mg/dL Est Cr Clr Drug Dosing mL/min Estimated GFR (MDRD) ml/min Glucose (60-110) mg/dL POC Glucose 115 H 96 113 H (60-110) mg/dL Calcium (8.8-10.8) mg/dL 04/02/17 04/02/17 04/02/17 Range/Units 04:54 04:54 05:58 WBC 7.59 (4.0-11.0) K/uL RBC 4.88 (4.50-5.90) M/uL Hgb 14.4 (13.0-17.0) g/dL Hct 41.3 (38.0-50.0) % MCV 84.6 (80.0-98.0) fL MCH 29.5 (27.0-32.0) pg MCHC 34.9 (31.0-37.0) g/dL RDW Std Deviation 36.5 (28.0-62.0) fl RDW Coeff of Randy 12 (11.0-15.0) % Plt Count 118 L (150-400) K/uL MPV 10.80 (7.40-12.00) fL Neut % (Auto) 69.3 (48.0-80.0) % Lymph % (Auto) 17.4 (16.0-40.0) % [place] % (Auto) 10.0 (0.0-15.0) % Eos % (Auto) 3.0 (0.0-7.0) % Baso % (Auto) 0.3 (0.0-1.5) % Neut # (Auto) 5.3 (1.4-5.7) K/uL Lymph # (Auto) 1.3 (0.6-2.4) K/uL [place] # (Auto) 0.8 (0.0-0.8) K/uL Eos # (Auto) 0.2 (0.0-0.7) K/uL Baso # (Auto) 0.0 (0.0-0.1) K/uL Nucleated RBC % 0.0 /100WBC Nucleated RBCs # 0 K/uL Sodium 137 (136-146) mmol/L Potassium 3.7 (3.5-5.1) mmol/L Chloride 106 (98-110) mmol/L Carbon Dioxide 24 (21-31) mmol/L BUN 11 (6.0-23.0) mg/dL Creatinine 0.9 (0.6-1.5) mg/dL Est Cr Clr Drug Dosing 102.39 mL/min Estimated GFR (MDRD) > 60.0 ml/min Glucose 159 H (60-110) mg/dL POC Glucose 133 H (60-110) mg/dL Calcium 8.2 L (8.8-10.8) mg/dL 04/02/17 Range/Units 11:27 WBC (4.0-11.0) K/uL RBC (4.50-5.90) M/uL Hgb (13.0-17.0) g/dL Hct (38.0-50.0) % MCV (80.0-98.0) fL MCH (27.0-32.0) pg MCHC (31.0-37.0) g/dL RDW Std Deviation (28.0-62.0) fl RDW Coeff of Randy (11.0-15.0) % Plt Count (150-400) K/uL MPV (7.40-12.00) fL Neut % (Auto) (48.0-80.0) % Lymph % (Auto) (16.0-40.0) % [place] % (Auto) (0.0-15.0) % Eos % (Auto) (0.0-7.0) % Baso % (Auto) (0.0-1.5) % Neut # (Auto) (1.4-5.7) K/uL Lymph # (Auto) (0.6-2.4) K/uL [place] # (Auto) (0.0-0.8) K/uL Eos # (Auto) (0.0-0.7) K/uL Baso # (Auto) (0.0-0.1) K/uL Nucleated RBC % /100WBC Nucleated RBCs # K/uL Sodium (136-146) mmol/L Potassium (3.5-5.1) mmol/L Chloride (98-110) mmol/L Carbon Dioxide (21-31) mmol/L BUN (6.0-23.0) mg/dL Creatinine (0.6-1.5) mg/dL Est Cr Clr Drug Dosing mL/min Estimated GFR (MDRD) ml/min Glucose (60-110) mg/dL POC Glucose 134 H (60-110) mg/dL Calcium (8.8-10.8) mg/dL Med Orders - Current: Current Medications Acetaminophen (Tylenol) 650 mg PO Q4H PRN PRN Reason: Headache/Pain Last Admin: 04/02/17 12:25 Dose: 650 mg Benzonatate (Tessalon Perles) 200 mg PO BEDTIME PRN PRN Reason: Cough Hydromorphone HCl (Dilaudid) 1 mg IVPUSH Q2H PRN PRN Reason: Pain Last Admin: 04/01/17 15:54 Dose: 1 mg Ciprofloxacin/Dextrose 400 mg/ (Premix) 200 mls @ 200 mls/hr IV Q12H [facility] Last Infusion: 04/02/17 04:50 Dose: Infused Metronidazole 500 mg/ Premix 100 mls @ 100 mls/hr IV Q8H [facility] Last Admin: 04/02/17 07:44 Dose: 100 mls/hr Insulin Aspart (Novolog) 0 unit SUBCUT Q6H JASON PRN Reason: Protocol Last Admin: 04/02/17 06:45 Dose: Not Given Ondansetron HCl (Zofran) 4 mg IVPUSH Q4H PRN PRN Reason: Nausea Last Admin: 04/02/17 02:31 Dose: 4 mg Discontinued Medications Albuterol/Ipratropium (Duoneb 3.0-0.5 Mg/3 Ml) 3 ml NEB ONETIME ONE Stop: 03/31/17 13:46 Last Admin: 03/31/17 14:13 Dose: 3 ml Aspirin (Aspirin) 324 mg PO ONETIME ONE Stop: 03/31/17 13:40 Last Admin: 03/31/17 13:57 Dose: 324 mg Hydromorphone HCl (Dilaudid) 1 mg IVPUSH ONETIME ONE Stop: 03/31/17 15:52 Last Admin: 03/31/17 16:09 Dose: 1 mg Hydromorphone HCl (Dilaudid) 1 mg IVPUSH Q3H PRN PRN Reason: Pain Last Admin: 04/01/17 06:59 Dose: 1 mg Sodium Chloride (Normal Saline) 1,000 mls @ 999 mls/hr IV STAT ONE Stop: 03/31/17 14:39 Last Admin: 03/31/17 14:01 Dose: 999 mls/hr Metronidazole 500 mg/ Premix 100 mls @ 100 mls/hr IV ONETIME ONE Stop: 03/31/17 16:50 Last Admin: 03/31/17 16:15 Dose: 100 mls/hr Sodium Chloride (Normal Saline) 1,000 mls @ 125 mls/hr IV ASDIRECTED [facility] Last Admin: 04/01/17 22:55 Dose: 125 mls/hr Iopamidol (Isovue Multipack-370 (76%)) 100 ml IVPUSH ONETIME STA Stop: 03/31/17 17:58 Last Admin: 03/31/17 17:58 Dose: 100 ml Ketorolac Tromethamine (Toradol) 30 mg IVPUSH ONETIME ONE Stop: 04/01/17 08:53 Last Admin: 04/01/17 09:13 Dose: 30 mg Ketorolac Tromethamine (Toradol) 30 mg IVPUSH ONETIME ONE Stop: 04/01/17 17:41 Last Admin: 04/01/17 18:01 Dose: 30 mg Ketorolac Tromethamine (Toradol) 30 mg IVPUSH ONETIME STA Stop: 04/02/17 01:59 Last Admin: 04/02/17 02:27 Dose: 30 mg Morphine Sulfate (Morphine) 4 mg IVPUSH ONETIME ONE Stop: 03/31/17 13:50 Last Admin: 03/31/17 14:13 Dose: 4 mg Morphine Sulfate (Morphine) 2 mg IVPUSH Q3H PRN PRN Reason: Pain Nitroglycerin (Nitrostat) 0.4 mg SL Q5M PRN PRN Reason: Chest Pain Ondansetron HCl (Zofran) 8 mg IVPUSH ONETIME ONE Stop: 03/31/17 13:46 Last Admin: 03/31/17 14:01 Dose: 8 mg Pantoprazole Sodium (Protonix Iv) 80 mg IVPUSH .BOLUS ONE Stop: 03/31/17 13:45 Last Admin: 03/31/17 14:04 Dose: 80 mg - Exam General: Reports: Alert, Oriented, Cooperative, No Acute Distress Lungs: Reports: Clear to Auscultation, Normal Respiratory Effort Cardiovascular: Reports: Regular Rate, Regular Rhythm GI/Abdominal Exam: Normal Bowel Sounds, Soft, No Organomegaly, No Distention, No Abnormal Bruit, No Mass, Pelvis Stable, Tender (scant tenderness to LLQ) Extremities: Normal Inspection, Normal Range of Motion, Non-Tender, No Pedal Edema, Normal Capillary Refill Neurological: Reports: No New Focal Deficit Psy/Mental Status: Reports: Alert, Normal Affect, Normal Mood *Q Meaningful Use (DIS) - VTE *Q VTE Criteria *Q: - Stroke *Q Stroke Criteria *Q: - AMI *Q AMI Criteria *Q:
[2017-04-02] MEDS ORDERED: metroNIDAZOLE 250 MG Tab PO ONE (13:38)
[2017-04-02 13:52] VITALS: BP 135/66
== END 2017-04-02 13:45 | disposition home or self-care (01) | DRG 244 ==
LOC: MW.ED 13:34 → MW.MS 16:22
PROVIDERS: ADMIT Internal Medicine; ATTEND Internal Medicine
DX: K57.32 Diverticulitis of large intestine without perforation or abscess without bleeding (principal); K57.30 Diverticulosis of large intestine without perforation or abscess without bleeding
CPT/HCPCS: 36415; 71045; 71045-26; 74177; 74177-26; 80048; 80053; 81001; 82150; 82550; 82553; 82962; 83690; 84484; 85025; 87804; 93005; 96361; 96365; 96368; 96375; 99284; 99285-25; A9270-GY; C9113; J0744; J1170; J1885; J2270; J2405; J7040; Q9967

== ENCOUNTER 2018-07-16 15:46 | Emergency (ER) | payer BC ==
[2018-07-16] MEDS ORDERED: Ondansetron 4 MG/2 ML SDV IVPUSH ONE (16:07)
[2018-07-16] MEDS ORDERED: Ketorolac 30 MG/ML SDV IVPUSH ONE (16:07)
[2018-07-16] MEDS ORDERED: Sodium Chloride 0.9% 1,000 ML IV ONE (16:07)
[2018-07-16] MEDS ORDERED: Metoclopramide 10 MG/2 ML SDV IV ONE (16:08)
[2018-07-16] MEDS ORDERED: diphenhydrAMINE 50 MG/ML SDV IVPUSH ONE (16:08)
--- NOTE | 2018-07-16 16:27 | EDM.PDOC ---
ED HPI GENERAL MEDICAL PROBLEM - General Chief Complaint: Head Injury Stated Complaint: HEAD INJURY, COUGH, PLUGGED EARS, DIZZY Time Seen by Provider: 07/16/18 15:51 Source of Information: Reports: Patient History Limitations: Reports: No Limitations - History of Present Illness INITIAL COMMENTS - FREE TEXT/NARRATIVE: HISTORY AND PHYSICAL: History of present illness: Patient is a 42-year-old male who has had a history of sinus pressure, sore throat and cough 3 days. Today he was getting up off the couch when he felt lightheaded and had fallen to the ground. Positive loss of consciousness. He does have an abrasion to his right upper scalp. Patient has localized pain to where he has the abrasion. States he still feels slightly dizzy and has the URI symptoms. Patient denies any fever, chills, or change in vision. Denies any chest pain, back pain, shortness of breath. Denies any abdominal pain, nausea, vomiting, diarrhea, constipation or dysuria. Has not noted any blood in urine or stool. Patient has been eating and drinking appropriately. Review of systems: As per history of present illness and below otherwise all systems reviewed and negative. Past medical history: As per history of present illness and as reviewed below otherwise noncontributory. Surgical history: As per history of present illness and as reviewed below otherwise noncontributory. Social history: See social history for further information Family history: As per history of present illness and as reviewed below otherwise noncontributory. Physical exam: General: Well-developed and well-nourished 42-year-old male. Alert and oriented. Nontoxic appearing and in no acute distress. HEENT: Abrasion noted to the right upper scalp, otherwise nontender, normocephalic, pupils equal and reactive bilaterally, negative for conjunctival pallor or scleral icterus, mucous membranes moist, mild erythema noted to the left TM, normal light reflex and no bulging. Right TMs normal, throat has mild erythematous without exudate and otherwise clear, neck supple, nontender, trachea midline. No drooling or trismus noted. No meningeal signs. No hot potato voice noted. Lungs: Clear to auscultation, breath sounds equal bilaterally, chest nontender. Heart: S1S2, regular rate and rhythm without overt murmur Abdomen: Soft, nondistended, nontender. Negative for masses or hepatosplenomegaly. Negative for costovertebral tenderness. Pelvis: Stable nontender. Genitourinary: Deferred. Rectal: Deferred. Skin: Intact, warm, dry. No lesions or rashes noted. Extremities: Ambulatory, moves all extremities per self without difficulty or deficits, negative for cords or calf pain. Neurovascular unremarkable. C-spine/Back: No pinpoint vertebral tenderness upon palpation. No crepitus, step -offs or obvious deformities. Patient is ambulatory into the emergency room without difficulty or deficits. He denies any urinary or fecal incontinence. Denies any numbness, tingling or saddle paresthesia. Neuro: Awake, alert, oriented. Cranial nerves II through XII unremarkable. Cerebellum unremarkable. Motor and sensory unremarkable throughout. Exam nonfocal. Notes: Head CT shows no intracranial hemorrhage or infarct, normal noncontrast head CT. Negative chest x-ray. Lab work is unremarkable. Patient states he does feel improved. We discussed being discharged home, he is comfortable and eager for discharge. We'll give him 24 hours off of work. Supportive care measures were reviewed and discussed. Voices understanding and is agreeable to plan of care. Denies any further questions or concerns at this time. Diagnostics: CBC, CMP, Troponin, EKG, Head CT Therapeutics: IV fluids, Zofran, Toradol Prescription: Augmentin Pro Air Inhaler Impression: Head Injury Abrasion Otitis Media, left URI Plan: 1. Increase your oral fluids. 2. Keep the skin clean and dry. Take your antibiotic as prescribed. 3. Tylenol and/or ibuprofen as needed for pain management. 4. Follow up with your primary care provider as discussed. Return to the ED as needed and as discussed. Definitive disposition and diagnosis as appropriate pending reevaluation and review of above. Headache Pain Score (Numeric/FACES): 10 - Related Data Allergies Allergy/AdvReac Type Severity Reaction Status Date / Time No Known Allergies Allergy Verified 07/16/18 15:59 Home Meds: Home Meds . [No Known Home Meds] 07/16/18 [History] Past Medical History - Past Health History Medical/Surgical History: Denies Medical/Surgical History HEENT History: Reports: None, Impaired Vision, Other (See Below) Other HEENT History: wears glasses Cardiovascular History: Reports: None Other Cardiovascular History: History of chest pain-- all investigation came back normal Respiratory History: Reports: None Gastrointestinal History: Reports: Diverticulosis, GERD Other Gastrointestinal History: Diverticulitis Genitourinary History: Reports: None Musculoskeletal History: Reports: None Other Musculoskeletal History: Shoulder injury Neurological History: Reports: Concussion Psychiatric History: Reports: None Endocrine/Metabolic History: Reports: Obesity/BMI 30+ Hematologic History: Reports: None Immunologic History: Reports: None Oncologic (Cancer) History: Reports: None Dermatologic History: Reports: None - Infectious Disease History Infectious Disease History: Reports: Chicken Pox - Past Surgical History Head Surgeries/Procedures: Reports: None HEENT Surgical History: Reports: None Cardiovascular Surgical History: Reports: None Respiratory Surgical History: Reports: None GI Surgical History: Reports: None Male Surgical History: Reports: Vasectomy Endocrine Surgical History: Reports: None Neurological Surgical History: Reports: None Musculoskeletal Surgical History: Reports: None Oncologic Surgical History: Reports: None Dermatological Surgical History: Reports: None Social & Family History - Family History Family Medical History: Noncontributory HEENT: Reports: Glaucoma Cardiac: Reports: CAD, High Cholesterol, Hypertension Respiratory: Reports: None GI: Reports: Diverticulitis : Reports: None OBGYN: Reports: None Musculoskeletal: Reports: None Neurological: Reports: None Psychiatric: Reports: Anxiety, Depression Endocrine/Metabolic: Reports: Diabetes, type II Immunologic: Reports: None Dermatologic: Reports: None Oncologic: Reports: Other (See Below) Other Oncologic Family History: tongue - Tobacco Use Smoking Status *Q: Never Smoker - Caffeine Use Caffeine Use: Reports: Coffee - Recreational Drug Use Recreational Drug Use: No ED ROS GENERAL - Review of Systems Review Of Systems: ROS reveals no pertinent complaints other than HPI. ED EXAM, HEAD INJURY - Physical Exam Exam: See Below (See dictation) Course - Vital Signs Last Recorded V/S: Last Vital Signs Temp 97.8 F 07/16/18 15:57 Pulse 92 07/16/18 15:57 Resp 16 07/16/18 15:57 BP 150/87 H 07/16/18 15:57 Pulse Ox 97 07/16/18 15:57 - Orders/Labs/Meds Orders: Active Orders 24 hr Category Date Time Status EKG Documentation Completion [RC] STAT Care 07/16/18 16:07 Active CULTURE STREP A CONFIRMATION [RM] Stat Lab 07/16/18 17:00 Results STREP SCRN A RAPID W CULT CONF [RM] Stat Lab 07/16/18 17:00 Received Labs: Laboratory Tests 07/16/18 07/16/18 Range/Units 16:15 16:15 WBC 5.33 (4.0-11.0) K/uL RBC 5.39 (4.50-5.90) M/uL Hgb 15.9 (13.0-17.0) g/dL Hct 45.2 (38.0-50.0) % MCV 83.9 (80.0-98.0) fL MCH 29.5 (27.0-32.0) pg MCHC 35.2 (31.0-37.0) g/dL RDW Std Deviation 36.6 (28.0-62.0) fl RDW Coeff of Randy 12 (11.0-15.0) % Plt Count 116 L (150-400) K/uL MPV 10.70 (7.40-12.00) fL Neut % (Auto) 46.7 L (48.0-80.0) % Lymph % (Auto) 34.7 (16.0-40.0) % [place] % (Auto) 14.1 (0.0-15.0) % Eos % (Auto) 3.9 (0.0-7.0) % Baso % (Auto) 0.6 (0.0-1.5) % Neut # (Auto) 2.5 (1.4-5.7) K/uL Lymph # (Auto) 1.9 (0.6-2.4) K/uL [place] # (Auto) 0.8 (0.0-0.8) K/uL Eos # (Auto) 0.2 (0.0-0.7) K/uL Baso # (Auto) 0.0 (0.0-0.1) K/uL Nucleated RBC % 0.0 /100WBC Nucleated RBCs # 0 K/uL Sodium 140 (136-148) mmol/L Potassium 3.9 (3.5-5.1) mmol/L Chloride 102 (98-107) mmol/L Carbon Dioxide 24.1 (21.0-32.0) mmol/L BUN 20 H (7.0-18.0) mg/dL Creatinine 1.2 (0.8-1.3) mg/dL Est Cr Clr Drug Dosing 76.00 mL/min Estimated GFR (MDRD) > 60.0 ml/min Glucose 177 H (74-106) mg/dL Calcium 8.9 (8.5-10.1) mg/dL Total Bilirubin 0.6 (0.2-1.0) mg/dL AST 28 (15-37) IU/L ALT 78 H (14-63) IU/L Alkaline Phosphatase 51 (46-116) U/L Troponin I < 0.050 (0.000-0.056) ng/mL Total Protein 6.8 (6.4-8.2) g/dL Albumin 4.2 (3.4-5.0) g/dL Globulin 2.6 (2.6-4.0) g/dL Albumin/Globulin Ratio 1.6 (0.9-1.6) Meds: Medications Discontinued Medications Generic Name Dose Route Start Last Admin Trade Name Freq PRN Reason Stop Dose Admin Diphenhydramine HCl 50 mg 07/16/18 16:08 Benadryl IVPUSH 07/16/18 16:09 ONETIME ONE Sodium Chloride 1,000 mls @ 999 mls/hr 07/16/18 16:07 07/16/18 16:17 Normal Saline IV 07/16/18 17:07 999 mls/hr STAT ONE Administration Ketorolac Tromethamine 30 mg 07/16/18 16:07 07/16/18 16:17 Toradol IVPUSH 07/16/18 16:08 30 mg ONETIME ONE Administration Metoclopramide HCl 10 mg 07/16/18 16:08 Reglan IV 07/16/18 16:09 ONETIME ONE Ondansetron HCl 4 mg 07/16/18 16:07 07/16/18 16:17 Zofran IVPUSH 07/16/18 16:08 4 mg ONETIME ONE Administration Departure - Departure Time of Disposition: 17:46 Disposition: Home, Self-Care 01 Clinical Impression: Abrasion Head injury Qualifiers: Encounter type: initial encounter Qualified Code(s): S09.90XA - Unspecified injury of head, initial encounter Otitis media Qualifiers: Otitis media type: unspecified Laterality: left Qualified Code(s): H66.92 - Otitis media, unspecified, left ear URI (upper respiratory infection) Qualifiers: URI type: unspecified URI Qualified Code(s): J06.9 - Acute upper respiratory infection, unspecified - Discharge Information Referrals: PCP,Unknown [Primary Care Provider] - Forms: ED Department Discharge Additional Instructions: The following information is given to patients seen in the emergency department who are being discharged to home. This information is to outline your options for follow-up care. We provide all patients seen in our emergency department with a follow-up referral. The need for follow-up, as well as the timing and circumstances, are variable depending upon the specifics of your emergency department visit. If you don't have a primary care physician on staff, we will provide you with a referral. We always advise you to contact your personal physician following an emergency department visit to inform them of the circumstance of the visit and for follow-up with them and/or the need for any referrals to a consulting specialist. The emergency department will also refer you to a specialist when appropriate. This referral assures that you have the opportunity for follow-up care with a specialist. All of these measure are taken in an effort to provide you with optimal care, which includes your follow-up. Under all circumstances we always encourage you to contact your private physician who remains a resource for coordinating your care. When calling for follow-up care, please make the office aware that this follow-up is from your recent emergency room visit. If for any reason you are refused follow-up, please contact the [facility] Emergency Department at and asked to speak to the emergency department charge nurse. [facility] [address] [place] [id number] [id number] 1. Increase your oral fluids. 2. Keep the skin clean and dry. Take your antibiotic as prescribed. 3. Tylenol and/or ibuprofen as needed for pain management. 4. Follow up with your primary care provider as discussed. Return to the ED as needed and as discussed. - My Orders Last 24 Hours: My Active Orders 07/16/18 16:07 EKG Documentation Completion [RC] STAT 07/16/18 17:00 CULTURE STREP A CONFIRMATION [RM] Stat STREP SCRN A RAPID W CULT CONF [RM] Stat - Assessment/Plan Last 24 Hours: My Active Orders 07/16/18 16:07 EKG Documentation Completion [RC] STAT 07/16/18 17:00 CULTURE STREP A CONFIRMATION [RM] Stat STREP SCRN A RAPID W CULT CONF [] Stat
--- NOTE | 2018-07-16 17:06 | CT ---
INDICATION: Pt blacked out and hit head on closet today. CT HEAD WITHOUT CONTRAST TECHNIQUE: Multiple axial CT images were performed through the head without intravenous contrast administration. COMPARISON: No previous studies are currently available for comparison. FINDINGS: No acute intracranial hemorrhage is identified. No extra-axial collections are evident and there is no mass effect or midline shift. Ventricles are normal in size and configuration. Brain parenchyma appears normal with unremarkable almaraz-white differentiation. Osseous structures are within normal limits and no fractures are seen. Included portions of the paranasal sinuses and mastoid air cells are normally aerated. IMPRESSION: Normal non-contrast head CT. ROYAL MOLINA MD [employer] Dictated by: Pal Molina MD @ 07/16/2018 17:05:27 (Electronically Signed)
[2018-07-16 17:07] LABS: CHLORIDE,CL 102 mmol/L (98-107); SODIUM,NA 140 mmol/L (136-148)
--- NOTE | 2018-07-16 17:24 | CR ---
INDICATION: syncope CHEST, ONE VIEW An AP radiograph of the chest was performed. Comparison: 03/31/2017. The lungs appear clear and no pleural effusions are identified. There is unchanged mild elevation of the right diaphragm. The cardiomediastinal silhouette and pulmonary vasculature appear normal, as do the visualized bones. IMPRESSION: No acute intrathoracic abnormality identified. ROYAL MOLINA MD [employer] Dictated by: Pal Molina MD @ 07/16/2018 17:23:09 (Electronically Signed)
[2018-07-16 18:01] VITALS: BP 117/83
== END 2018-07-16 18:01 | disposition home or self-care (01) ==
LOC: MW.ED 15:46
DX: S00.01XA Abrasion of scalp, initial encounter (principal); J06.9 Acute upper respiratory infection, unspecified; H66.92 Otitis media, unspecified, left ear; W19.XXXA Unspecified fall, initial encounter
CPT/HCPCS: 36415; 70450; 71045; 80053; 84484; 85025; 87081; 87880; 93005; 96361; 96374; 96375; 99285; J1885; J2405; J7040

== ENCOUNTER 2020-01-30 14:38 | Emergency (ER) | payer SELFPAY ==
[2020-01-30] MEDS ORDERED: Metoclopramide 10 MG/2 ML SDV IVPUSH ONE (15:17)
[2020-01-30] MEDS ORDERED: diphenhydrAMINE 50 MG/ML SDV IVPUSH ONE (15:17)
--- NOTE | 2020-01-30 15:20 | EDM.PDOC ---
ED HPI GENERAL MEDICAL PROBLEM - General Chief Complaint: General Stated Complaint: MIGRAINE/NAUSEA/VOMITING/COVID POSITIVE Time Seen by Provider: 01/30/20 15:18 History Limitations: Reports: No Limitations - History of Present Illness INITIAL COMMENTS - FREE TEXT/NARRATIVE: Patient is a 44-year-old male presents today for headache. Patient's headache been present for 3 days. Patient also reports some dizziness. Patient has dizziness as room spinning. Patient is made worse when he turns to the right. Patient does not improve when he sit still. Patient also reported some nausea but no vomiting. Patient denies any trauma abdominal pain chest pain or fevers chills or shortness of breath. Head Pain Score (Numeric/FACES): 10 - Related Data Allergies Allergy/AdvReac Type Severity Reaction Status Date / Time No Known Allergies Allergy Verified 01/30/20 14:51 Home Meds: Home Meds . [No Known Home Meds] 07/16/18 [History] Past Medical History - Past Health History Medical/Surgical History: Denies Medical/Surgical History HEENT History: Reports: Impaired Vision, Other (See Below) Other HEENT History: wears glasses Cardiovascular History: Reports: High Cholesterol, Hypertension Other Cardiovascular History: History of chest pain-- all investigation came back normal Respiratory History: Reports: None Gastrointestinal History: Reports: Diverticulosis, GERD Other Gastrointestinal History: Diverticulitis Genitourinary History: Reports: None Musculoskeletal History: Reports: None Other Musculoskeletal History: Shoulder injury Neurological History: Reports: Concussion Psychiatric History: Reports: None Endocrine/Metabolic History: Reports: Diabetes, Type II, Obesity/BMI 30+ Hematologic History: Reports: None Immunologic History: Reports: None Oncologic (Cancer) History: Reports: None Dermatologic History: Reports: None - Infectious Disease History Infectious Disease History: Reports: Chicken Pox - Past Surgical History Head Surgeries/Procedures: Reports: None HEENT Surgical History: Reports: None Cardiovascular Surgical History: Reports: None Respiratory Surgical History: Reports: None GI Surgical History: Reports: None Male Surgical History: Reports: Vasectomy Endocrine Surgical History: Reports: None Neurological Surgical History: Reports: None Musculoskeletal Surgical History: Reports: None Oncologic Surgical History: Reports: None Dermatological Surgical History: Reports: None Social & Family History - Family History Family Medical History: No Pertinent Family History HEENT: Reports: Glaucoma Cardiac: Reports: CAD, High Cholesterol, Hypertension Respiratory: Reports: None GI: Reports: Diverticulitis : Reports: None OBGYN: Reports: None Musculoskeletal: Reports: None Neurological: Reports: None Psychiatric: Reports: Anxiety, Depression Endocrine/Metabolic: Reports: Diabetes, type II Immunologic: Reports: None Dermatologic: Reports: None Oncologic: Reports: Other (See Below) Other Oncologic Family History: tongue - Tobacco Use Tobacco Use Status *Q: Never Tobacco User - Caffeine Use Caffeine Use: Reports: Coffee - Recreational Drug Use Recreational Drug Use: No ED ROS GENERAL - Review of Systems Review Of Systems: See Below Constitutional: Reports: No Symptoms HEENT: Reports: No Symptoms Respiratory: Reports: No Symptoms Cardiovascular: Reports: No Symptoms Endocrine: Reports: No Symptoms GI/Abdominal: Reports: No Symptoms : Reports: No Symptoms Musculoskeletal: Reports: No Symptoms Skin: Reports: No Symptoms Neurological: Reports: Dizziness Psychiatric: Reports: No Symptoms Hematologic/Lymphatic: Reports: No Symptoms Immunologic: Reports: No Symptoms ED EXAM, GENERAL - Physical Exam Exam: See Below Exam Limited By: No Limitations General Appearance: Alert, No Apparent Distress Respiratory/Chest: No Respiratory Distress, Lungs Clear Cardiovascular: Normal Peripheral Pulses, Regular Rate, Rhythm GI/Abdominal: Normal Bowel Sounds, Soft, Non-Tender Extremities: Normal Range of Motion Neurological: Alert, Oriented, CN II-XII Intact, Normal Cognition Course - Vital Signs Last Recorded V/S: Last Vital Signs Temp 96.5 F L 01/30/20 14:51 Pulse 84 01/30/20 15:35 Resp 16 01/30/20 15:35 BP 126/79 01/30/20 15:35 Pulse Ox 95 01/30/20 15:35 - Orders/Labs/Meds Meds: Medications Discontinued Medications Generic Name Dose Route Start Last Admin Trade Name Lorenzo PRN Reason Stop Dose Admin Diphenhydramine HCl 25 mg 01/30/20 15:17 01/30/20 15:32 Benadryl IVPUSH 01/30/20 15:18 25 mg ONETIME ONE Administration Metoclopramide HCl 10 mg 01/30/20 15:17 01/30/20 15:32 Reglan IVPUSH 01/30/20 15:18 10 mg ONETIME ONE Administration - Re-Assessments/Exams Free Text/Narrative Re-Assessment/Exam: 01/30/20 16:59 Headaches has improved as well as dizziness at the medication. Patient back to baseline will be discharged home. Departure - Departure Time of Disposition: 16:59 Disposition: Home, Self-Care 01 Condition: Good Clinical Impression: Migraine - Discharge Information *PRESCRIPTION DRUG MONITORING PROGRAM REVIEWED*: Not Applicable *COPY OF PRESCRIPTION DRUG MONITORING REPORT IN PATIENT [place]: Not Applicable Instructions: Migraine Headache, [id number] Referrals: Alejandro Shultz MD [Primary Care Provider] - Forms: ED Department Discharge Additional Instructions: The following information is given to patients seen in the emergency department who are being discharged to home. This information is to outline your options for follow-up care. We provide all patients seen in our emergency department with a follow-up referral. The need for follow-up, as well as the timing and circumstances, are variable depending upon the specifics of your emergency department visit. If you don't have a primary care physician on staff, we will provide you with a referral. We always advise you to contact your personal physician following an emergency department visit to inform them of the circumstance of the visit and for follow-up with them and/or the need for any referrals to a consulting specialist. The emergency department will also refer you to a specialist when appropriate. This referral assures that you have the opportunity for follow-up care with a specialist. All of these measure are taken in an effort to provide you with optimal care, which includes your follow-up. Under all circumstances we always encourage you to contact your private physician who remains a resource for coordinating your care. When calling for follow-up care, please make the office aware that this follow-up is from your recent emergency room visit. If for any reason you are refused follow-up, please contact the [facility] Emergency Department at and asked to speak to the emergency department charge nurse. Please follow up with your primary care physician. If you do not have a primary care physician, see below: [facility] [address] [place] [id number] [facility] [address] [place] [id number] Please follow-up with your primary care physician as needed. If you have recurrent headaches or any numbness weakness in your body please return to the ED. Sepsis Event Note (ED) - Evaluation Sepsis Screening Result: Possible Sepsis Risk - Focused Exam Vital Signs: Vital Signs Temp Pulse Resp BP Pulse Ox 01/30/20 15:35 84 16 126/79 95 01/30/20 14:51 96.5 F L 94 16 140/86 96 - Assessment/Plan Plan: Patient is a 44-year-old male presents today for headache and dizziness. On exam the headaches seems peripheral. Patient has history of migraines. Will give Reglan and Benadryl and reassess.
[2020-01-30 17:07] VITALS: BP 128/72; PULSE 78
== END 2020-01-30 17:10 | disposition home or self-care (01) ==
LOC: MW.ED 14:38
DX: G43.909 Migraine, unspecified, not intractable, without status migrainosus (principal); I10 Essential (primary) hypertension; E11.9 Type 2 diabetes mellitus without complications; E66.9 Obesity, unspecified; Z68.34 Body mass index [BMI] 34.0-34.9, adult
CPT/HCPCS: 96374; 96375; 99283; J1200; J2765

== ENCOUNTER 2021-04-07 11:37 | Emergency (ER) | payer BC ==
[2021-04-07] MEDS ORDERED: traMADol 50 MG Tab PO ONE (12:00)
[2021-04-07] MEDS ORDERED: Ketorolac 30 MG/ML SDV IM ONE (12:01)
[2021-04-07 14:08] VITALS: BP 106/73; PULSE 95
== END 2021-04-07 14:00 | disposition home or self-care (01) ==
LOC: MW.ED 11:37
DX: R07.9 Chest pain, unspecified (principal); M25.512 Pain in left shoulder; E11.9 Type 2 diabetes mellitus without complications; E66.9 Obesity, unspecified; K21.9 Gastro-esophageal reflux disease without esophagitis; Z68.33 Body mass index [BMI] 33.0-33.9, adult; Z79.899 Other long term (current) drug therapy; Z79.84 Long term (current) use of oral hypoglycemic drugs
CPT/HCPCS: 71046; 72125; 73030; 93005; 96372; 99284; A9270; J1885

== ENCOUNTER 2021-11-17 09:18 | Emergency (ER) | payer BC ==
[2021-11-17 11:42] LABS: CORONAVIRUS COVID-19 NAA NEGATIVE (NEGATIVE); INFLUENZA A NAA NEGATIVE (NEGATIVE); INFLUENZA B NAA NEGATIVE (NEGATIVE)
[2021-11-17 11:55] LABS: CARBON DIOXIDE,CO2 23.7 mmol/L (21.0-32.0); POTASSIUM,K 3.8 mmol/L (3.5-5.1)
[2021-11-17 12:54] VITALS: BP 126/78; PULSE 95
== END 2021-11-17 12:46 | disposition home or self-care (01) ==
LOC: MW.ED 09:18
DX: J40 Bronchitis, not specified as acute or chronic (principal); Z20.822 Contact with and (suspected) exposure to COVID-19; I10 Essential (primary) hypertension; E78.00 Pure hypercholesterolemia, unspecified; E11.9 Type 2 diabetes mellitus without complications; E66.9 Obesity, unspecified; Z68.31 Body mass index [BMI] 31.0-31.9, adult; Z79.84 Long term (current) use of oral hypoglycemic drugs; Z79.899 Other long term (current) drug therapy
CPT/HCPCS: 0240U; 36415; 71046; 80053; 84484; 85025; 85379; 93005; 99285

== ENCOUNTER 2022-06-06 20:19 | Emergency (ER) | payer BC ==
[2022-06-06] MEDS ORDERED: Ibuprofen 600 MG Tab PO ONE (22:07)
[2022-06-06 22:40] VITALS: BP 137/78; PULSE 86
== END 2022-06-06 22:39 | disposition home or self-care (01) ==
LOC: MW.ED 20:19
DX: S89.91XA Unspecified injury of right lower leg, initial encounter (principal); E78.00 Pure hypercholesterolemia, unspecified; I10 Essential (primary) hypertension; E11.9 Type 2 diabetes mellitus without complications; E66.9 Obesity, unspecified; Z79.899 Other long term (current) drug therapy; Z79.84 Long term (current) use of oral hypoglycemic drugs; Z86.16 Personal history of COVID-19; Z68.31 Body mass index [BMI] 31.0-31.9, adult; W19.XXXA Unspecified fall, initial encounter
CPT/HCPCS: 73590; 73610; 99283; A9270

== ENCOUNTER 2023-02-22 21:10 | Emergency (ER) | payer BC ==
[2023-02-22] MEDS ORDERED: Amoxicillin/Clavulanate K 875-125 MG Tab PO ONE (21:35)
[2023-02-22] MEDS ORDERED: Benzocaine 20% Topical Spray UD MUCMEM ONE (21:35)
[2023-02-22] MEDS ORDERED: Lidocaine 2% Viscous Solution 15 ML UD PO ONE (21:35)
[2023-02-22] MEDS ORDERED: Ketorolac 30 MG/ML SDV IM ONE (21:35)
[2023-02-22] MEDS ORDERED: Acetaminophen/oxyCODONE 325-5 MG Tab PO ONE (21:35)
[2023-02-22] MEDS ORDERED: Ondansetron 4 MG Tab.DIS PO ONE (21:35)
[2023-02-22 21:59] VITALS: BP 134/80; PULSE 85
== END 2023-02-22 21:59 | disposition home or self-care (01) ==
LOC: MW.ED 21:10
DX: K03.81 Cracked tooth (principal); I10 Essential (primary) hypertension; E78.00 Pure hypercholesterolemia, unspecified; E11.9 Type 2 diabetes mellitus without complications; E66.9 Obesity, unspecified; Z68.31 Body mass index [BMI] 31.0-31.9, adult; Z79.84 Long term (current) use of oral hypoglycemic drugs; Z79.899 Other long term (current) drug therapy; Z79.2 Long term (current) use of antibiotics; Z86.16 Personal history of COVID-19
CPT/HCPCS: 96372; 99283; A9270; J1885

== ENCOUNTER 2023-04-27 22:33 | Emergency (ER) | payer BC ==
[2023-04-28] MEDS: Amoxicillin/Clavulanate K 875-125 MG Tab PO ONE (00:03)
[2023-04-28] MEDS: Acetaminophen/oxyCODONE 325-5 MG Tab PO ONE (00:03)
[2023-04-28] MEDS: Lidocaine 2% Viscous Solution 15 ML UD PO ONE (00:03)
[2023-04-28] MEDS: Benzocaine 20% Topical Spray UD MUCMEM ONE (00:03)
[2023-04-28] MEDS: Dexamethasone 10 MG/ML SDV PO ONE (00:03)
[2023-04-28] MEDS: Dexamethasone 10 MG/ML SDV IVPUSH ONE (00:05)
[2023-04-28 00:15] VITALS: BP 120/78; PULSE 86
== END 2023-04-28 00:14 | disposition home or self-care (01) ==
LOC: MW.ED 22:33
DX: K08.89 Other specified disorders of teeth and supporting structures (principal); J02.9 Acute pharyngitis, unspecified; I10 Essential (primary) hypertension; E78.00 Pure hypercholesterolemia, unspecified; E11.9 Type 2 diabetes mellitus without complications; Z79.84 Long term (current) use of oral hypoglycemic drugs; Z79.899 Other long term (current) drug therapy; E66.9 Obesity, unspecified; Z68.35 Body mass index [BMI] 35.0-35.9, adult
CPT/HCPCS: 87651; 99282; A9270; J8540; 99284

== ENCOUNTER 2023-05-02 14:15 | Emergency (ER) | payer BC ==
[2023-05-02] MEDS: Sodium Chloride 0.9% 10 ML Syringe FLUSH PRN (15:08)
[2023-05-02] MEDS: Sodium Chloride 0.9% 1,000 ML IV STA (15:08)
[2023-05-02] MEDS: Ketorolac 30 MG/ML SDV IVPUSH STA (15:08)
[2023-05-02] MEDS: Sodium Chloride 0.9% 2.5 ML Syringe FLUSH PRN (15:08)
[2023-05-02 15:12] LABS: BASOPHILS ABSOLUTE AUTO 0.04 K/uL (0.00-0.20); BASOPHILS PERCENT AUTO 0.5 % (0.0-1.0); EOSINOPHILS ABSOLUTE AUTO 0.27 K/uL (0.00-0.45); EOSINOPHILS PERCENT AUTO 3.4 % (0.0-6.0); HEMATOCRIT 44.2 % (42.0-52.0); HEMOGLOBIN 15.6 g/dL (14.0-18.0); IMMATURE GRAN PERCENT AUTO 1.3 % (0.0-0.4); LYMPHOCYTES ABSOLUTE AUTO 1.98 K/uL (1.00-4.80); LYMPHOCYTES PERCENT AUTO 24.8 % (24.0-44.0); MEAN CORPUSCULAR HEMOGLOBIN 30.1 pg (28.0-32.0); MEAN CORPUSCULAR HGB CONC 35.3 g/dL (32.0-36.0); MEAN CORPUSCULAR VOLUME 85.3 fL (83.0-99.0); MEAN PLATELET VOLUME 10.6 fL (9.4-12.4); MONOCYTES ABSOLUTE AUTO 0.67 K/uL (0.00-0.80); MONOCYTES PERCENT AUTO 8.4 % (0.0-8.0); NEUTROPHILS ABSOLUTE AUTO 4.94 K/uL (1.80-7.70); NEUTROPHILS PERCENT AUTO 61.6 % (41.0-71.0); PLATELET COUNT,PLT 154 K/uL (150-400); RED BLOOD CELL COUNT 5.18 M/uL (4.52-5.90)
[2023-05-02 15:29] LABS: CALCIUM 8.7 mg/dL (8.5-10.1); CARBON DIOXIDE,CO2 26.5 mmol/L (21.0-32.0); EST CRCL DRUG DOSING (CG) 86.45 mL/min; POTASSIUM,K 3.9 mmol/L (3.5-5.1)
[2023-05-02 16:21] LABS: CORONAVIRUS COVID-19 NAA NEGATIVE (NEGATIVE); INFLUENZA A NAA NEGATIVE (NEGATIVE); INFLUENZA B NAA NEGATIVE (NEGATIVE); RESPIRATORY SYNCYTIAL VIR NAA NEGATIVE (NEGATIVE)
[2023-05-02 16:44] VITALS: BP 104/77; PULSE 101
== END 2023-05-02 16:45 | disposition home or self-care (01) ==
LOC: MW.ED 14:15
DX: J06.9 Acute upper respiratory infection, unspecified (principal); I10 Essential (primary) hypertension; E78.00 Pure hypercholesterolemia, unspecified; E11.9 Type 2 diabetes mellitus without complications; Z86.16 Personal history of COVID-19; Z79.899 Other long term (current) drug therapy
CPT/HCPCS: 0241U; 36415; 71046; 80048; 85025; 87651; 96361; 96374; 99285; J1885; J3490; J7030; 93010; 99284

== ENCOUNTER 2023-09-06 17:37 | Observation (INO) | payer BC ==
[2023-09-06 18:07] LABS: BASOPHILS ABSOLUTE AUTO 0.06 K/uL (0.00-0.20); BASOPHILS PERCENT AUTO 0.8 % (0.0-1.0); EOSINOPHILS ABSOLUTE AUTO 0.23 K/uL (0.00-0.45); HEMATOCRIT 41.7 % (42.0-52.0); HEMOGLOBIN 14.6 g/dL (14.0-18.0); IMMATURE GRAN ABSOLUTE AUTO 0.06 K/uL (0.00-0.05); IMMATURE GRAN PERCENT AUTO 0.8 % (0.0-0.4); LYMPHOCYTES ABSOLUTE AUTO 2.67 K/uL (1.00-4.80); LYMPHOCYTES PERCENT AUTO 35.4 % (24.0-44.0); MEAN CORPUSCULAR HEMOGLOBIN 29.2 pg (28.0-32.0); MEAN CORPUSCULAR VOLUME 83.4 fL (83.0-99.0); MEAN PLATELET VOLUME 10.9 fL (9.4-12.4); MONOCYTES ABSOLUTE AUTO 0.53 K/uL (0.00-0.80); PLATELET COUNT,PLT 158 K/uL (150-400); WHITE BLOOD CELL COUNT,WBC 7.55 K/uL (3.9-11.3)
[2023-09-06] MEDS: Iopamidol 755 MG/ML 500 ML Multipack Bottle IVPUSH STA (18:19)
[2023-09-06 18:24] LABS: INR 1.03 (0.86-1.11)
[2023-09-06 18:36] LABS: A/G RATIO 1.8 (0.9-1.6); ALANINE AMINOTRANSFERASE,ALT 32 IU/L (14-63); ALBUMIN 4.1 g/dL (3.4-5.0); ALKALINE PHOSPHATASE 56 U/L (46-116); ASPARTATE AMNIOTRANSFERASE,AST 19 IU/L (15-37); BILIRUBIN TOTAL 0.8 mg/dL (0.2-1.0); BLOOD UREA NITROGEN,BUN 17 mg/dL (7.0-18.0); CALCIUM 8.3 mg/dL (8.5-10.1); CARBON DIOXIDE,CO2 25.2 mmol/L (21.0-32.0); CHLORIDE,CL 104 mmol/L (98-107); CREATININE 0.9 mg/dL (0.8-1.3); EST CRCL DRUG DOSING (CG) 96.06 mL/min; GLUCOSE RANDOM 145 mg/dL (74-106); POTASSIUM,K 3.6 mmol/L (3.5-5.1); PROTEIN TOTAL,TP 6.4 g/dL (6.4-8.2); SODIUM,NA 140 mmol/L (136-148)
[2023-09-06 18:37] LABS: ESTIMATED GFR 105 mL/min (>60)
[2023-09-06] MEDS: Sodium Chloride 0.9% 1,000 ML IV STA (18:59)
[2023-09-06] MEDS: Sodium Chloride 0.9% 2.5 ML Syringe FLUSH PRN (18:59)
[2023-09-06] MEDS: Acetaminophen 325 MG Tab PO ONE (18:59)
[2023-09-06] MEDS: diphenhydrAMINE 50 MG/ML SDV IVPUSH ONE (19:00)
[2023-09-06] MEDS: Magnesium Sulfate/Water 2 GM in Premix Bag 1 BAG IV ONE (19:00)
[2023-09-06] MEDS: Sodium Chloride 0.9% 10 ML Syringe FLUSH PRN (19:00)
[2023-09-06 19:42] LABS: CORONAVIRUS COVID-19 NAA NEGATIVE (NEGATIVE); INFLUENZA A NAA NEGATIVE (NEGATIVE); INFLUENZA B NAA NEGATIVE (NEGATIVE); RESPIRATORY SYNCYTIAL VIR NAA NEGATIVE (NEGATIVE)
[2023-09-06 20:28] LABS: APPEARANCE,URINE CLEAR; BILIRUBIN,URINE NEGATIVE (NEGATIVE); COLOR,URINE YELLOW; GLUCOSE,URINE NEGATIVE (NEGATIVE); KETONES,URINE NEGATIVE (NEGATIVE); LEUKOCYTE ESTERASE,URINE NEGATIVE (NEGATIVE); NITRITE,URINE NEGATIVE (NEGATIVE); OCCULT BLOOD,URINE NEGATIVE (NEGATIVE); PROTEIN,URINE NEGATIVE (NEGATIVE); UROBILINOGEN,URINE 0.2 EU/dL (<2.0)
[2023-09-06 20:36] LABS: AMPHETAMINES SCREEN, URINE NEGATIVE (CUTOFF=500); BARBITURATE SCREEN,URINE NEGATIVE (CUTOFF=200); BENZODIAZEPINES SCREEN,URINE NEGATIVE (CUTOFF=150); BUPRENORPHINE SCREEN,URINE NEGATIVE (CUTOFF=10); METHADONE SCREEN, URINE NEGATIVE (CUTOFF=200); METHAMPHETAMINES SCREEN, URINE NEGATIVE (CUTOFF=500); OXYCODONE SCREEN,URINE NEGATIVE (CUT0FF=100); PCP SCREEN,URINE NEGATIVE (CUTOFF=25); THC SCREEN,URINE 20 NG/ML NEGATIVE (CUTOFF=50)
[2023-09-06] MEDS ORDERED: Polyethylene Glycol 3350 Powder 17 GM Packet PO PRN (20:59)
[2023-09-06] MEDS ORDERED: Melatonin 3 MG Tab PO PRN (20:59)
[2023-09-06] MEDS ORDERED: Ondansetron 4 MG/2 ML SDV IVPUSH PRN (20:59)
[2023-09-06] MEDS ORDERED: Glucagon,Human Recombinant 1 MG Vial IM PRN (21:02)
[2023-09-06] MEDS ORDERED: 50% Dextrose in Water 50 ML Syringe IVPUSH PRN (21:02)
[2023-09-06 21:32] LABS: HEMOGLOBIN A1C 6.2 %
[2023-09-06] MEDS: atorvaSTATin 20 MG Tab PO SCH (21:50)
[2023-09-06] MEDS: Aspirin 81 MG Tab.EC PO SCH (21:50)
[2023-09-06 21:56] LABS: CALCIUM 8.1 mg/dL (8.5-10.1); EST CRCL DRUG DOSING (CG) 86.45 mL/min; POTASSIUM,K 3.7 mmol/L (3.5-5.1)
[2023-09-06] MEDS: Insulin Aspart 100 Units/ML 3 ML Pen SUBCUT SCH (21:59)
[2023-09-06 22:25] LABS: TSH ULTRASENSITIVE 0.6 uIU/mL (0.36-3.74)
[2023-09-07 06:31] LABS: HEMATOCRIT 38.9 % (42.0-52.0); HEMOGLOBIN 13.7 g/dL (14.0-18.0); MEAN CORPUSCULAR HEMOGLOBIN 29.6 pg (28.0-32.0); MEAN CORPUSCULAR HGB CONC 35.2 g/dL (32.0-36.0); MEAN PLATELET VOLUME 10.9 fL (9.4-12.4); PLATELET COUNT,PLT 143 K/uL (150-400); RED BLOOD CELL COUNT 4.63 M/uL (4.52-5.90); WHITE BLOOD CELL COUNT,WBC 5.76 K/uL (3.9-11.3)
[2023-09-07] MEDS: Acetaminophen 325 MG Tab PO PRN (08:50)
[2023-09-07] MEDS: LORazepam 2 MG/ML SDV IVPUSH ONE (10:48)
[2023-09-07] MEDS: Gadobenate Dimeglumine 529 MG/ML 20 ML SDV IVPUSH ONE (11:55)
[2023-09-07 18:33] VITALS: BP 139/82; PULSE 89
== END 2023-09-07 19:00 | disposition home or self-care (01) ==
LOC: MW.ED 17:37 → MW.MS 20:51
PROVIDERS: ADMIT Family Medicine; ATTEND Family Medicine
DX: G43.909 Migraine, unspecified, not intractable, without status migrainosus (principal); R20.0 Anesthesia of skin; E11.9 Type 2 diabetes mellitus without complications; I10 Essential (primary) hypertension; I25.10 Atherosclerotic heart disease of native coronary artery without angina pectoris; E78.00 Pure hypercholesterolemia, unspecified; F41.9 Anxiety disorder, unspecified; F32.A Depression, unspecified; Z79.899 Other long term (current) drug therapy; Z79.82 Long term (current) use of aspirin; Z20.822 Contact with and (suspected) exposure to COVID-19; Z79.84 Long term (current) use of oral hypoglycemic drugs
CPT/HCPCS: 0241U; 36415; 70450; 70496; 70498; 70547; 70553; 71045; 80048; 80053; 80061; 80305; 81003; 82550; 82607; 82947; 83036; 83605; 83735; 84443; 84484; 85025; 85027; 85610; 85652; 86140; 87040; 93005; 93306; 96361; 96374; 96375; 99285; A9270; A9577; G0378; J1200; J2060; J3475; J3490; J7030; Q9967; 93010; 99283; J1815-GY

== ENCOUNTER 2023-10-25 13:01 | Emergency (ER) | payer BC ==
[2023-10-25] MEDS: Dexamethasone 4 MG Tab PO ONE (14:00)
[2023-10-25 14:17] LABS: CORONAVIRUS COVID-19 NAA POSITIVE (NEGATIVE); INFLUENZA A NAA NEGATIVE (NEGATIVE); INFLUENZA B NAA NEGATIVE (NEGATIVE); RESPIRATORY SYNCYTIAL VIR NAA NEGATIVE (NEGATIVE)
[2023-10-25 15:40] VITALS: BP 131/72; PULSE 98
[2023-10-25] MEDS: Ibuprofen 600 MG Tab PO ONE (15:46)
[2023-10-25] MEDS: Acetaminophen 500 MG Tab PO ONE (15:46)
== END 2023-10-25 15:59 | disposition home or self-care (01) ==
LOC: MW.ED 13:01
DX: U07.1 COVID-19 (principal); J06.9 Acute upper respiratory infection, unspecified; R09.81 Nasal congestion; I10 Essential (primary) hypertension; E78.00 Pure hypercholesterolemia, unspecified; E11.9 Type 2 diabetes mellitus without complications; Z79.82 Long term (current) use of aspirin; Z79.84 Long term (current) use of oral hypoglycemic drugs; Z79.899 Other long term (current) drug therapy; Z86.16 Personal history of COVID-19
CPT/HCPCS: 0241U; 87651; 99283; A9270; J8540

== ENCOUNTER 2023-11-04 18:41 | Emergency (ER) | payer BC ==
[2023-11-04] MEDS: Lidocaine 1% 5 ML VIAL INJECT ONE (20:02)
[2023-11-04 21:26] VITALS: BP 136/72; PULSE 78
== END 2023-11-04 21:26 | disposition home or self-care (01) ==
LOC: MW.ED 18:41
DX: L05.01 Pilonidal cyst with abscess (principal); I10 Essential (primary) hypertension; E78.00 Pure hypercholesterolemia, unspecified; E11.9 Type 2 diabetes mellitus without complications; Z79.84 Long term (current) use of oral hypoglycemic drugs; Z79.899 Other long term (current) drug therapy; Z75.8 Other problems related to medical facilities and other health care
CPT/HCPCS: 10080; 99283-25; J3490

== ENCOUNTER 2024-03-21 21:37 | Emergency (ER) | payer BC ==
[2024-03-21 21:56] LABS: BASOPHILS ABSOLUTE AUTO 0.08 K/uL (0.00-0.20); BASOPHILS PERCENT AUTO 1.1 % (0.0-1.0); EOSINOPHILS ABSOLUTE AUTO 0.37 K/uL (0.00-0.45); EOSINOPHILS PERCENT AUTO 4.9 % (0.0-6.0); HEMATOCRIT 44.7 % (42.0-52.0); HEMOGLOBIN 15.8 g/dL (14.0-18.0); IMMATURE GRAN ABSOLUTE AUTO 0.09 K/uL (0.00-0.05); IMMATURE GRAN PERCENT AUTO 1.2 % (0.0-0.4); LYMPHOCYTES ABSOLUTE AUTO 3.32 K/uL (1.00-4.80); LYMPHOCYTES PERCENT AUTO 44.1 % (24.0-44.0); MEAN CORPUSCULAR HEMOGLOBIN 29.2 pg (28.0-32.0); MEAN CORPUSCULAR HGB CONC 35.3 g/dL (32.0-36.0); MEAN CORPUSCULAR VOLUME 82.5 fL (83.0-99.0); MEAN PLATELET VOLUME 10.8 fL (9.4-12.4); MONOCYTES ABSOLUTE AUTO 0.61 K/uL (0.00-0.80); MONOCYTES PERCENT AUTO 8.1 % (0.0-8.0); NEUTROPHILS ABSOLUTE AUTO 3.06 K/uL (1.80-7.70); NEUTROPHILS PERCENT AUTO 40.6 % (41.0-71.0); PLATELET COUNT,PLT 161 K/uL (150-400); RED BLOOD CELL COUNT 5.42 M/uL (4.52-5.90); WHITE BLOOD CELL COUNT,WBC 7.53 K/uL (3.9-11.3)
[2024-03-21] MEDS: Morphine 4 MG/ML Syringe IVPUSH ONE (21:58)
[2024-03-21] MEDS: Aspirin 81 MG Tab.Chew PO ONE (21:58)
[2024-03-21 22:20] LABS: CALCIUM 8.9 mg/dL (8.5-10.1); CARBON DIOXIDE,CO2 26.9 mmol/L (21.0-32.0); CREATININE 1.1 mg/dL (0.8-1.3); EST CRCL DRUG DOSING (CG) 77.73 mL/min; POTASSIUM,K 3.7 mmol/L (3.5-5.1)
[2024-03-21 22:22] LABS: D-DIMER QUANTITATIVE < 0.19 mg/L FEU (0.00-0.50); INR 1.08 (0.86-1.11)
[2024-03-22] MEDS: Ketorolac 30 MG/ML SDV IVPUSH ONE (00:40)
[2024-03-22 00:57] VITALS: BP 120/87; PULSE 83
== END 2024-03-22 00:57 | disposition home or self-care (01) ==
LOC: MW.ED 21:37
DX: R07.81 Pleurodynia (principal); I10 Essential (primary) hypertension; E78.00 Pure hypercholesterolemia, unspecified; E11.9 Type 2 diabetes mellitus without complications; Z86.73 Personal history of transient ischemic attack (TIA), and cerebral infarction without residual deficits; Z79.82 Long term (current) use of aspirin; Z79.84 Long term (current) use of oral hypoglycemic drugs; Z79.899 Other long term (current) drug therapy
CPT/HCPCS: 36415; 71046; 80048; 84484; 85025; 85379; 85610; 85730; 93005; 96374; 96375; 99285; A9270; J1885; J2270; 93010; 99283

== ENCOUNTER 2024-09-24 23:12 | Emergency (ER) | payer BC ==
[2024-09-24 23:51] VITALS: BP 123/66; PULSE 80
[2024-09-25] MEDS: Ketorolac 30 MG/ML SDV IM ONE (00:02)
== END 2024-09-25 00:05 | disposition home or self-care (01) ==
LOC: MW.ED 23:12
DX: S89.92XA Unspecified injury of left lower leg, initial encounter (principal); I10 Essential (primary) hypertension; E78.00 Pure hypercholesterolemia, unspecified; E11.9 Type 2 diabetes mellitus without complications; Z79.899 Other long term (current) drug therapy; X58.XXXA Exposure to other specified factors, initial encounter
CPT/HCPCS: 96372; 99283; J1885

== ENCOUNTER 2024-11-14 13:50 | Emergency (ER) | payer SELFPAY ==
[2024-11-14 16:13] LABS: BASOPHILS ABSOLUTE AUTO 0.05 K/uL (0.00-0.20); BASOPHILS PERCENT AUTO 0.4 % (0.0-1.0); EOSINOPHILS ABSOLUTE AUTO 0.09 K/uL (0.00-0.45); EOSINOPHILS PERCENT AUTO 0.7 % (0.0-6.0); IMMATURE GRAN ABSOLUTE AUTO 0.07 K/uL (0.00-0.05); IMMATURE GRAN PERCENT AUTO 0.5 % (0.0-0.4); LYMPHOCYTES ABSOLUTE AUTO 1.90 K/uL (1.00-4.80); LYMPHOCYTES PERCENT AUTO 14.8 % (24.0-44.0); MEAN PLATELET VOLUME 10.2 fL (9.4-12.4); MONOCYTES ABSOLUTE AUTO 1.15 K/uL (0.00-0.80); MONOCYTES PERCENT AUTO 8.9 % (0.0-8.0); NEUTROPHILS ABSOLUTE AUTO 9.62 K/uL (1.80-7.70); NEUTROPHILS PERCENT AUTO 74.7 % (41.0-71.0); NRBC ABSOLUTE 0.00 K/uL (0.00-0.02); NRBC PERCENT 0.0 /100WBC (0.0-0.2); PLATELET COUNT,PLT 142 K/uL (150-400); RED BLOOD CELL COUNT 5.10 M/uL (4.52-5.90); WHITE BLOOD CELL COUNT,WBC 12.88 K/uL (3.9-11.3)
[2024-11-14] MEDS ORDERED: Sodium Chloride 0.9% 10 ML Syringe FLUSH PRN (16:35)
[2024-11-14] MEDS ORDERED: Sodium Chloride 0.9% 2.5 ML Syringe FLUSH PRN (16:35)
[2024-11-14 16:42] LABS: A/G RATIO 1.4 (0.9-1.6); ALANINE AMINOTRANSFERASE,ALT 28.0 IU/L (14-63); ASPARTATE AMNIOTRANSFERASE,AST 13.0 IU/L (15-37); BILIRUBIN TOTAL 2.4 mg/dL (0.2-1.0); BLOOD UREA NITROGEN,BUN 18.0 mg/dL (7.0-18.0); CARBON DIOXIDE,CO2 27.2 mmol/L (21.0-32.0); CHLORIDE,CL 102.0 mmol/L (98-107); CREATININE 1.3 mg/dL (0.8-1.3); EST CRCL DRUG DOSING (CG) 65.04 mL/min; ESTIMATED GFR 67.0 mL/min (>60); GLUCOSE RANDOM 128.0 mg/dL (74-106); POTASSIUM,K 3.9 mmol/L (3.5-5.1); PROTEIN TOTAL,TP 7.1 g/dL (6.4-8.2); SODIUM,NA 139.0 mmol/L (136-148)
[2024-11-14] MEDS: Ondansetron 4 MG/2 ML SDV IVPUSH ONE (16:52)
[2024-11-14] MEDS: fentaNYL 50 MCG/ML SDV IVPUSH ONE ×2 (16:54→18:00)
[2024-11-14] MEDS: Iopamidol 755 MG/ML 500 ML Multipack Bottle IVPUSH STA (17:06)
[2024-11-14] MEDS: Ketorolac 30 MG/ML SDV IVPUSH ONE (18:00)
[2024-11-14] MEDS: Amoxicillin/Clavulanate K 875-125 MG Tab PO ONE (18:01)
[2024-11-14 18:26] VITALS: BP 111/69; PULSE 98
== END 2024-11-14 18:29 | disposition home or self-care (01) ==
LOC: MW.ED 13:50
DX: K57.32 Diverticulitis of large intestine without perforation or abscess without bleeding (principal); R93.429 Abnormal radiologic findings on diagnostic imaging of unspecified kidney; E78.00 Pure hypercholesterolemia, unspecified; I10 Essential (primary) hypertension; E11.9 Type 2 diabetes mellitus without complications; Z79.899 Other long term (current) drug therapy; Z86.73 Personal history of transient ischemic attack (TIA), and cerebral infarction without residual deficits; Z79.84 Long term (current) use of oral hypoglycemic drugs
CPT/HCPCS: 36415; 74177; 80053; 85025; 96361; 96374; 96375; 96376; 99284; A9270; J1885; J2405; J3010; J7030; Q9967